=== PATIENT | male | born 1950 | race Caucasian/White ===

== ENCOUNTER 2024-01-15 11:18 | Emergency (ER) | payer OTHER, SELFPAY ==
[2024-01-15] VITALS (9 sets, daily range): BP systolic 120–144; BP diastolic 71–101; PULSE 76–87; O2SAT 96; BMI 24.0
[2024-01-15 12:29] LABS: % Basophils 0.9 % (0-2); % Eosinophils 5.2 % (0-6); % Immature Granulocytes 0.2 % (0-0.5); % Lymphocytes 26.5 % (20.5-51.1); % Monocytes 9.3 % (1.7-9.3); % Neutrophils 57.9 % (42.2-75.2); Absolute Basophils 0.1 10^3/uL (0-0.2); Absolute Eosinophils 0.3 10^3/uL (0-0.7); Absolute Lymphocytes 1.5 10^3/uL (1.2-3.4); Absolute Monocytes 0.5 10^3/uL (0.1-0.6); Absolute Neutrophils 3.2 10^3/uL (1.4-6.5); Hematocrit 45.9 % (39.0-52.0); Hemoglobin 15.7 g/dL (13.0-18.0); Mean Corp Hgb Conc. 34.2 g/dL (33.0-37.0); Mean Corpuscular Volume 93.5 fL (80.0-94.0); Nucleated Red Blood Cells % 0 % (-); Platelet Count 148 10^3/uL (130-400); Red Blood Cell Count 4.91 10^6/uL (4.70-6.10); Red Cell Dist. Width 12.2 % (11.5-14.5); White Blood Cell Count 5.6 10^3/uL (4.8-10.8)
[2024-01-15 12:38] LABS: ALT (SGPT) 42 U/L (0-50); AST (SGOT) 33 U/L (17-59); Albumin 4.2 g/dl (3.5-5.0); Alkaline Phosphatase 54 U/L (38-126); Blood Urea Nitrogen 15 mg/dl (9-20); Calcium 9.7 mg/dl (8.4-10.2); Carbon Dioxide 29 mmol/L (22-30); Chloride 106 mmol/L (98-107); Glucose 104 mg/dl (70-99); Potassium 4.2 mmol/L (3.5-5.1); Sodium 140 mmol/L (135-145); Total Bilirubin 0.7 mg/dl (0.2-1.3); Total Protein 6.9 g/dl (6.3-8.2); eGFR > 60.00
--- NOTE | 2024-01-15 13:12 | ED.GENMED ---
History of Present Illness
General
Chief Complaint: Dizziness
Source: patient
Exam Limitations: none
Time Seen by Provider: 01/15/24 12:45
Travel History
Have you had any contact with someone who has COVID-19?: No
Do you have any symptoms of coronavirus? Fever > 100 degrees, chills, cough, shortness of breath, sore throat, loss of taste or smell, muscle aches, or headache?: No
History of Present Illness
History of Present Illness:
73-year-old male with history of Lewy body dementia, Parkinson presents with increased dizziness today and new onset numbness to the left side of the face and left arm and leg. Symptoms started at 9 AM this morning. He is on a baby aspirin. He
denies headache. He has a history of vertigo and is followed by neurology. He is prescribed meclizine and Valium. He took 2 mg of Valium this morning which did not seem to help. He describes that the floor looks like a pattern of waves. He
denies double vision. No chest pain or shortness of breath. No fever. He has a bladder pacemaker. No change in urinary habits otherwise.
Past History
Past History
ED Past Medical History: CAD, HTN, Hypercholesterolemia and Other (Parkinson's, migraines, Lewy body dementia, Frequent urinary tract infections, has a bladder stimulator implant, sleep apnea)
ED Past Surgical History: Cardiac (Cardiac cath 2007), Orthopedic and Urological (TURP)
Social History
Tobacco: Former smoker
Alcohol: None
Drug: None
Personal:
Living: with family
Phy Exam
Physical Exam
Physical Exam:
General: Well-appearing male no acute respiratory distress
HEENT: Normocephalic atraumatic
Heart: Regular rate and rhythm
Lungs: Clear no wheeze or rales
Neurologic: Alert and oriented. No facial asymmetry or slurred speech. No evidence of aphasia. No obvious drift on exam. No nystagmus noted
Extremities: No cyanosis or edema
Skin: Warm without rash
Course
Orders/Labs/Results
Orders:
Orders
01/15/24 11:[address] [CT Head W/o Iv Contrast] Urgent
Comment:
Reason For Exam: numbness of face and dizziness
01/15/24 12:13
Complete Blood Count/With Diff Urgent
Comprehensive Metabolic Panel Urgent
01/15/24 13:37
Urinalysis Reflex To Culture Urgent
Date Specimen was Collected: 01/15/24
Time Specimen was Collected: 13:35
01/15/24 13:59
PT Consult [Pt Eval And Treat] Urgent
Treatment: vestibular eval and ambulate
Activity Level: Ambulate
Abnormal Lab Results
01/15/24
12:13
MCH 32.0 H pg
(27.0-31.0)
Glucose 104 H mg/dl
(70-99)
01/15/24 12:13
01/15/24 12:13
Vital Signs
Initial and Last Documented VS:
Initial Vital Signs
Temp Pulse Resp BP Pulse Ox
98.4 F 70 18 128/71 99
01/15/24 11:30 01/15/24 11:30 01/15/24 11:30 01/15/24 11:30 01/15/24 11:30
Last Documented Vital Signs
Temp Pulse Resp BP Pulse Ox
98.4 F 73 15 144/85 95
01/15/24 11:30 01/15/24 13:45 01/15/24 13:45 01/15/24 13:00 01/15/24 13:45
MDM/Problems Addressed
Differential Diagnosis Includes:
Patient with ongoing dizziness presents with worsening symptoms and usual as well as new onset numbness to the left side of the face left arm and leg. On exam objectively there is no unilateral deficits of strength or sensation. CT of the head was
performed through triage which is negative. Labs reviewed without significant finding.
Reached out to neurology for further recommendations on workup here. I was just told by the nurse that the patient now has numbness to the right side of the face which makes my suspicion of CVA less likely.
*Critical Care Note
Total Time (30-74mins, 75-104mins- exclusive of procedures): Not Applicable
Update Note
Update Note:
Workup here unremarkable with normal CT scan urinalysis negative. Patient was evaluated by physical therapy. He was somewhat unsteady. He has been unsteady in the past as well. Discussed with neurology. No indication for further workup or
imaging. He now complains of occasional paresthesias to bilateral sides. Do not suspect CVA. Recommendation from neurology will be to start prednisone for his dizziness. Suspect potential underlying worsening of underlying issue such as
Parkinson's or Lewy body. Shared decision making occurred between patient and family and his provider regarding staying in the hospital or going home. Patient expresses strong desire to be able to go home. was concerned about him going up
the steps but they have not noted to have him sleep downstairs. Will advise follow-up with urology. Prednisone was prescribed
ED Attending Note
-
Portions of this chart may have been created with voice recognition software.� Occasional wrong word or��sound alike� substitutions may have occurred due to the inherent limitations of voice recognition software.
Discharge Plan
Departure
Patient Disposition: Home (Routine Discharge)
Date of Disposition: 01/15/24
Time of Disposition: 16:10
Patient with high blood pressure during this ER visit?: No
Discharge Problem:
Dizziness
Instructions: Vertigo (a type of dizziness)
Prescriptions:
New
prednisone 20 mg tablet
40 mg PO DAILY 5 Days Qty: 10 0RF
No Action
loratadine 10 MG tablet
10 mg PO DAILY
multivitamin with folic acid [Tab-A-Rustam] 1 TABLET tablet
1 tab PO DAILY
Medical Marijuana
0.25 - 0.5 ml sublingual BID
Patient Comments:
03/18/2023: Pt uses a Daytime and Nighttime tincture. Pt goes to [facility] [phone] Hours: [place] [phone]
Myrbetriq 50 mg Tablet Extended Release 24 Hr
50 mg PO DAILY
quetiapine 25 mg tablet
25 mg PO HS
gabapentin 100 mg capsule
100 mg PO HS
rosuvastatin 20 mg tablet
20 mg PO DAILY
solifenacin 10 mg tablet
10 mg PO HS
clopidogrel 75 mg Tablet
75 mg PO DAILY Qty: 30 3RF
meclizine 12.5 mg Tablet
25 mg PO TID PRN (Reason: vertigo)
sertraline [Zoloft] 25 mg Tablet
25 mg PO HS
Referrals:
Ajay Pearson DO [Family Provider] -
Activity Restrictions/Additional Instructions:
Use prednisone as directed. Continue with Valium if needed for dizziness. Please return here for worsening symptoms otherwise follow-up with your neurology team
Interventions
Interventions:
*Risk Screen - Suicide Last Done: 01/15/24 11:30
*General Assessment Last Done: 01/15/24 11:30
*Neglect/Abuse Screening Last Done: 01/15/24 11:30
ED- Neurological Assessment Last Done: 01/15/24 12:35
ED Swallowing Screen Last Done: 01/15/24 16:07
Discharge Date and Time
Print Language: ROMANIAN
[2024-01-15 14:03] LABS: Urine Albumin Negative (Neg - Trace); Urine Bilirubin Negative (Negative); Urine Character Clear (Clear); Urine Color Yellow; Urine Glucose Negative (Negative); Urine Ketone Negative (Negative); Urine Leukocyte Negative (Negative); Urine Nitrite Negative (Negative); Urine Occult Blood Negative (Negative); Urine Specific Gravity 1.015 (<1.030); Urine Urobilinogen Negative (Neg - 1+); Urine pH 6.5 (5.0-9.0)
== END 2024-01-15 16:55 | disposition home or self-care (01) ==
LOC: EMR 11:18
PROVIDERS: Physician Assistant; EMERGENCY PHYSICIAN Emergency Medicine; FAMILY PHYSICIAN Family Medicine
DX: R42 Dizziness and giddiness (principal); R20.0 Anesthesia of skin; Z87.891 Personal history of nicotine dependence; I10 Essential (primary) hypertension; G20.A1 Parkinson's disease without dyskinesia, without mention of fluctuations; F02.80 Dementia in other diseases classified elsewhere, unspecified severity, without behavioral disturbance, psychotic disturbance, mood disturbance, and anxiety
CPT/HCPCS: 99285; 70450; 80053; 81003; 85025

== ENCOUNTER → 2024-02-04 09:21 | Outpatient (REF) | payer OTHER, SELFPAY | LOC: MRI 09:21 | PROVIDERS: ATTENDING PHYSICIAN Psychiatry & Neurology Neurology; FAMILY PHYSICIAN Family Medicine | DX: I63.9 Cerebral infarction, unspecified (principal) | CPT/HCPCS: 70544; 70547; 70551 ==

== ENCOUNTER 2024-03-25 11:28 | Emergency (ER) | payer OTHER, SELFPAY ==
[2024-03-25] VITALS (7 sets, daily range): BP systolic 113–158; BP diastolic 67–91
--- NOTE | 2024-03-25 11:43 | CON.NEURO ---
Neuro Assessment/Plan
Assessment
IMPRESSIONS/RECOMMENDATIONS:
Abrupt change in right eye visual change and right arm weakness. Both are subjective, not objective currently. Patient has a prior history of dementia with Lewy bodies.
Differential diagnosis for the patient's symptomatology includes migraine with aura based on the patient's headache which began shortly after the patient's symptomatic onset of right eye visual change and subjective right arm dysfunction.
Plan
Prochlorperazine for headache which may be producing other symptoms
Increase Melatonin to 15 mg for REM sleep behavior disorder
Would add again clopidogrel to the patient's usual aspirin use due to potential TIA, less likely
Patient is not currently utilizing medication in an attempt to remediate symptoms of dementia with Lewy bodies.
Will continue to follow as needed. Patient should follow with usual outpatient neurologist
Consultation
Order
Date of Consultation: 03/25/24
Requesting Provider: Emergency department physician
Reason for Consult: Stroke alert
Subjective/Objective
Subjective Data
Date of Service: March 25, 2024
Adapted from my esteemed colleagues prior consultation:
'72-year-old man with past medical history of Parkinson's disease presenting the hospital because of left-sided weakness, tilting to the left, new gait difficulties starting around yesterday in the late morning. Patient described as having a couple
of episodes which were thought to possibly be TIA characterized by visual hallucinations or occasional confused speech or aphasia, take aspirin 81 mg daily regularly. He denies any speech change or dysphagia or facial asymmetry but does note left
leg and left arm seem weak and having more difficulty walking than normal.
Was diagnosed with Parkinson's disease around 2019.
For some slow speech but no aphasia, cranial nerves, has minor left arm and left leg downward drift and some weakness 4/5 left shoulder abduction and left hip flexion. There is moderate parkinsonism with mild cogwheel rigidity bilaterally and an
obvious resting tremor more on the left than the right.
CT head non contrast with no obvious infarct, no hemorrhage or mass effect.
Unable to get MRI due to incompatibility
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 May be in white matter near cortex, basal ganglia, thalamus, or rom. Most likely small vessel disease as etiology.
Recommendations
-Repeat CT head non contrast to assess if any infarct can be visualized
-Check carotid ultrasound
-Switch to Clopidogrel therapy and stop aspirin. Will avoid DAPT due to bleeding risks as well as history of peptic ulcer.
-Keep Rosuvastatin to 20 mg daily LDL is at goal of 70
-Neurologic checks and NIH scales
-Continue existing Sinemet regimen
-Outpatient MRI'
Subsequent MRI of brain and MRA head and neck performed in January 2024 failed to demonstrate acute abnormalities producing symptomatology.
Patient returned to this hospital's emergency department today due to new sudden onset of subjective sense of visual change involving the right eye and right arm weakness. The patient has not had prior episodes which were similar. The patient
reports that approximately within 1 hour of symptom onset, he began having bilateral headache. The patient had onset of symptoms approximately 30 minutes prior to presentation to this hospital's emergency department.
Objective Data
Vital Signs
Temp Pulse Resp BP Pulse Ox
36.7 C 91 20 138/79 94
03/25/24 11:30 03/25/24 11:30 03/25/24 11:30 03/25/24 11:30 03/25/24 11:30
Patient Allergies
hyoscyamine [From Uribel] Allergy (Verified 03/25/24 11:33)
Hives
Iodinated Contrast Media [Iodinated Contrast Media - IV Dye] Allergy (Verified 03/25/24 11:33)
Hives
methenamine [From Uribel] Allergy (Verified 03/25/24 11:33)
Hives
methylene blue [From Uribel] Allergy (Verified 03/25/24 11:33)
Hives
salicylates [From Uribel] Allergy (Verified 03/25/24 11:33)
Hives
sodium phosphate [From Uribel] Allergy (Verified 03/25/24 11:33)
Hives
Sulfa (Sulfonamide Antibiotics) Allergy (Verified 03/25/24 11:33)
Unknown
Review of Systems
-
Unable to obtain full review of systems at this time due to: Dementia
History Source: Patient
All other systems: Reviewed and negative
Neuro: Headache; Negative Dizzy
Physical Exam
-
General: No Apparent Distress and Appears Stated Age
Eyes: OU Absent Papilledema, Round OU, [place] Conjunctivae and No Ptosis
HEENT: Anicteric and Moist Mucous Membranes
Neck: Full Range of Motion
Respiratory: No Dyspnea
Cardiac: No JVD
GI: Non-distended
Skin: Unremarkable
Extremities: No Clubbing, No Cyanosis and No Edema
Psych: Intact Judgement/Insight
Extended Neurological Exam
Mood & Affect: Mood Unremarkable and Affect Unremarkable
Attention Span & Concentration: Awake, Alert, Interactive and No Difficulty with 2 Step Request
Memory: Able to Recall (Current location, month, year)
Tremor: Hand Tremor Absent and Head Tremor Absent
Involuntary Movement: Negative None (Distal greater than proximal semirhythmic tremor at rest greater than with action in bilateral upper extremities)
Speech: Quality Unremarkable and Moderately Reduced Output
Cranial Nerve II: Left Eye: Pupillary Reactivity Unremarkable, Pupillary Size Unremarkable and Visual Flynn Intact
Cranial Nerve II: Right Eye: Pupillary Reactivity Unremarkable, Pupillary Size Unremarkable and Visual Flynn Intact
Cranial Nerves III, IV, : Extraocular Movement: Extraocular Movement Full in all Directions
Cranial Nerve VII: Facial Symmetry: Normal Facial Symmetry
Cranial Nerve VIII: Hearing: Unremarkable Hearing to Normal Conversational Volume
Cranial Nerves IX, X: Palate Movement: Palate Elevation Symmetric
Cranial Nerve XI: Shoulder Shrug: Unremarkable
Cranial Nerve XII: Tongue Protusion: Midline
Muscle Strength, Overall: Full Throughout
Muscle Bulk & Tone: Bulk Unremarkable and Tone Unremarkable
Pronator Drift: No Drift in Upper Extremities
Deep Tendon Reflexes: Trace Throughout
Touch Sensation: Unremarkable
Coordination: [id number] Testing Unremarkable
Data Reviewed
-
CT Head: Report Reviewed
Labs: Report Reviewed
Reviewed with: Physician, Nurse, Patient and Family
Old Records: Summarized
Medications
-
Home Medications
�Medication �Instructions �Recorded
loratadine 10 mg tablet 10 mg PO DAILY Allergies 07/24/21
multivitamin with folic acid 400 1 tab PO DAILY Supplement 07/24/21
mcg tablet (Tab-A-Rustam)
Medical Marijuana 0.25 - 0.5 ml sublingual BID 06/15/22
Mental Health/Anxiety
mirabegron 50 mg tablet,extended 50 mg PO DAILY Urinary Issue 06/15/22
release 24 hr (Myrbetriq)
gabapentin 100 mg capsule 100 mg PO HS Neurological Condition 03/18/23
quetiapine 25 mg tablet 25 mg PO HS Depression 03/18/23
rosuvastatin 20 mg tablet 20 mg PO DAILY High Cholesterol 03/18/23
solifenacin 10 mg tablet 10 mg PO HS Urinary Issue 03/18/23
clopidogrel 75 mg tablet 75 mg PO DAILY #30 tabs 03/20/23
meclizine 12.5 mg tablet 25 mg PO TID PRN vertigo 07/09/23
sertraline 25 mg tablet (Zoloft) 25 mg PO HS 07/09/23
prednisone 20 mg tablet 40 mg (2 x 20 mg) PO DAILY 5 days 01/15/24
#10 tabs
Past History
Past History
ED Past Medical History: CAD, Cancer (prostate ), HTN, Hypercholesterolemia and Other (migraines, Lewy body dementia, Frequent urinary tract infections, sleep apnea, sepsis)
ED Past Surgical History: Cardiac (Cardiac cath 2006), Orthopedic and Urological (TURP, has a bladder stimulator implant)
Social History
Tobacco: Former smoker
Alcohol: None
Drug: None
Personal:
Living: with family
Family History
Family History: Other (reviewed and non-contributory)
[2024-03-25 12:16] LABS: ALT (SGPT) 26 U/L (0-50); AST (SGOT) 24 U/L (17-59); Albumin 4.4 g/dl (3.5-5.0); Alkaline Phosphatase 66 U/L (38-126); Blood Urea Nitrogen 13 mg/dl (9-20); Calcium 9.7 mg/dl (8.4-10.2); Carbon Dioxide 29 mmol/L (22-30); Chloride 107 mmol/L (98-107); Glucose 100 mg/dl (70-99); Potassium 4.1 mmol/L (3.5-5.1); Sodium 142 mmol/L (135-145); Total Protein 6.8 g/dl (6.3-8.2); eGFR > 60.00
[2024-03-25 12:22] LABS: % Basophils 0.5 % (0-2); % Eosinophils 2.4 % (0-6); % Immature Granulocytes 0.3 % (0-0.5); % Lymphocytes 14.2 % (20.5-51.1); % Monocytes 7.5 % (1.7-9.3); % Neutrophils 75.1 % (42.2-75.2); Absolute Basophils 0.1 10^3/uL (0-0.2); Absolute Eosinophils 0.2 10^3/uL (0-0.7); Absolute Lymphocytes 1.3 10^3/uL (1.2-3.4); Absolute Monocytes 0.7 10^3/uL (0.1-0.6); Absolute Neutrophils 6.9 10^3/uL (1.4-6.5); Hematocrit 44.4 % (39.0-52.0); Hemoglobin 15.3 g/dL (13.0-18.0); Mean Corp Hgb Conc. 34.5 g/dL (33.0-37.0); Mean Corpuscular Hgb 32.2 pg (27.0-31.0); Mean Corpuscular Volume 93.5 fL (80.0-94.0); Mean Platelet Volume 10.4 fL (7.4-10.4); Nucleated Red Blood Cells % 0 % (-); Platelet Count 154 10^3/uL (130-400); Red Blood Cell Count 4.75 10^6/uL (4.70-6.10); Red Cell Dist. Width 12.4 % (11.5-14.5); White Blood Cell Count 9.2 10^3/uL (4.8-10.8)
[2024-03-25 12:23] LABS: INR 1.12; PT 14.2 Sec (11.4-14.6)
[2024-03-25 12:24] LABS: APTT 29.9 Sec (23.4-35.0)
[2024-03-25 12:25] LABS: Troponin I < 0.012 ng/ml
[2024-03-25] MEDS: PLAVIX 75 MG PO (12:26)
[2024-03-25] MEDS: COMPAZINE 10 MG PO (12:26)
[2024-03-25 12:44] LABS: Erythrocyte Sed Rate 10 mm/hour (0-20)
[2024-03-25 13:21] LABS: TSH Reflex To Free T4 0.63 uIU/ml (0.47-4.68)
[2024-03-25 13:25] LABS: Ferritin 90.5 ng/ml (17.9-464.0)
[2024-03-25 13:40] LABS: Vitamin B12 748 pg/ml (239-931)
--- NOTE | 2024-03-25 14:44 | ED.CVA ---
History of Present Illness
General
Chief Complaint: CVA/TIA Symptoms
Source: patient and spouse
Time Seen by Provider: 03/25/24 12:03
Onset of Stroke Symptoms
Onset of symptoms known: Yes
Date of onset of symptoms: 03/25/24
Time of onset of symptoms: 10:00
History of Present Illness
History of Present Illness:
73-year-old male started with some blurry vision and some questionable right arm weakness at 10 AM. No other complaints. No severe headache no other neurologic symptoms.
Past History
Past History
ED Past Medical History: CAD, Cancer (prostate ), HTN, Hypercholesterolemia and Other (migraines, Lewy body dementia, Frequent urinary tract infections, sleep apnea, sepsis)
ED Past Surgical History: Cardiac (Cardiac cath 2006), Orthopedic and Urological (TURP, has a bladder stimulator implant)
Social History
Tobacco: Former smoker
Alcohol: None
Drug: None
Personal:
Living: with family
Family History
Family History: Other (reviewed and non-contributory)
Phy Exam
Physical Exam
Physical Exam:
GENERAL: Alert and oriented. Mild tremor. Elderly and frail.
EYE: Orbits normal.
NECK: Supple, no carotid bruit
CARDIAC: Regular rate and rhythm without any obvious murmurs.
LUNGS: Clear breath sounds,normal
ABDOMEN: Soft, without focal tenderness or distention
NEUROLOGICAL: Alert and oriented , bolt man normal. Initially had a questionable slight right arm drift although on repeat exam this was normal. Lower extremity strength stable. Cranial nerves II through XII intact. Confrontation normal. Light
touch intact.
SKIN: Warm and dry, no rash or lesion, no discoloration, skin intact.
MUSCULOSKELETAL: No edema,no deformity.Good color
PSYCH: Normal and appropriate interaction.
Course
Orders/Labs/Results
Orders:
Orders
03/25/24 11:41
CT Head W/o Cont STROKE ALERT Urgent
Reason For Exam: stroke symptoms
03/25/24 11:56
Electrocardiogram (*1) Urgent
Reason for Study: Other
Other Reason for Exam: Possible Stroke
Cardiac Monitoring- Treatment ONCE
EKG- Treatment ONCE
IV Insert/Care/Rem.- Treatment PRN
Vital Signs As Directed
Frequency: Other
O2 Therapy [RESP] Urgent
Titrate/Wean O2 to maintain O2 sat greater than (%): 93
Special Instructions: MAINTAIN CONTINUOUS O2 SATS > OR = 93%
03/25/24 11:57
Complete Blood Count/With Diff Urgent
Comprehensive Metabolic Panel Urgent
Erythrocyte Sed Rate Urgent
Ferritin Urgent
Folate Urgent
PTT Urgent
Prothrombin Time Urgent
TSH Reflex To Free T4 Urgent
Troponin I Urgent
Vitamin B12 Urgent
Comment: \\
03/25/24 12:03
Add On- LAB Routine
Comments:: Please add to today's labs or draw as routine
Tests Added?: TSH reflex, Ferritin, Folate, Vit. B12, ESR
Add On- LAB Urgent
Tests Added?: esr
Prochlorperazine [Compazine] 10 mg PO NOW STA
03/25/24 12:11
Clopidogrel Bisulfate [Plavix] 75 mg PO NOW STA
03/25/24 18:00
Prochlorperazine [Compazine] 10 mg PO Q8HPRN PRN
Abnormal Lab Results
03/25/24
11:57
MCH 32.2 H pg
(27.0-31.0)
Absolute Neuts (auto) 6.9 H 10^3/uL
(1.4-6.5)
Absolute Monos (auto) 0.7 H 10^3/uL
(0.1-0.6)
Lymphocytes % 14.2 L %
(20.5-51.1)
Glucose 100 H mg/dl
(70-99)
Folate > 20.0 H ng/ml
(2.76-20)
03/25/24 11:57
03/25/24 11:57
Vital Signs
Initial and Last Documented VS:
Initial Vital Signs
Temp Pulse Resp BP Pulse Ox
98.1 F 91 20 138/79 94
03/25/24 11:30 03/25/24 11:30 03/25/24 11:30 03/25/24 11:30 03/25/24 11:30
Last Documented Vital Signs
Temp Pulse Resp BP Pulse Ox
98.1 F 82 18 132/78 94
03/25/24 11:30 03/25/24 15:00 03/25/24 15:00 03/25/24 15:00 03/25/24 15:00
*Radiology
Radiology exam reviewed: radiology read reviewed (No acute abnormalities)
*Pulse Oximetry
Patient hypoxic: no
*EKG
Interpreted by ED Provider?: Yes
Interpretation: normal
Heart Rate: 87
Rate: normal
Rhythm: sinus
Cammal: normal axis
Interval: normal interval
QRS Pattern: normal QRS
Ischemia: no ischemia
*Cosmetics Counter Manager Interpretation
Rate: normal
Interpretation: normal
Heart Rate: 84
Rhythm: sinus
*Critical Care Note
Total Time (30-74mins, 75-104mins- exclusive of procedures): Not Applicable
Update Note
Update Note:
Medically stable with resolution of symptoms. Seen by neuro neurology. They felt stable for outpatient management. Symptoms have resolved prior to discharge. Neurology recommends Plavix added.
ED Attending Note
-
Portions of this chart may have been created with voice recognition software.� Occasional wrong word or��sound alike� substitutions may have occurred due to the inherent limitations of voice recognition software.
Discharge Plan
Departure
Patient Disposition: Home (Routine Discharge)
Date of Disposition: 03/25/24
Time of Disposition: 15:24
Patient with high blood pressure during this ER visit?: Yes
Discharge Problem:
Transient visual loss
Instructions: Transient Ischemic Attack (DC), BLOOD PRESSURE
Prescriptions:
New
clopidogrel [Plavix] 75 mg tablet
75 mg PO DAILY Qty: 30 0RF
No Action
loratadine 10 MG tablet
10 mg PO DAILY
multivitamin with folic acid [Tab-A-Rustam] 1 TABLET tablet
1 tab PO DAILY
mirabegron [Myrbetriq] 50 mg Tablet Extended Release 24 Hr
50 mg PO DAILY
quetiapine 25 mg tablet
50 mg PO HS
gabapentin 100 mg capsule
100 mg PO HS
rosuvastatin 20 mg tablet
20 mg PO DAILY
solifenacin 10 mg tablet
10 mg PO HS
meclizine 12.5 mg Tablet
12.5 - 25 mg PO TIDPRN PRN (Reason: vertigo)
sertraline [Zoloft] 25 mg Tablet
25 mg PO HS
aspirin [Aspir-81] 81 mg Tablet,Delayed Release (Dr/Ec)
81 mg PO DAILY
amitriptyline 10 mg Tablet
10 mg PO DAILY
diazepam 2 mg Tablet
2 mg PO BIDPRN PRN (Reason: severe vertigo)
Patient Comments:
03/25/2024: last filled 02/21/24, 30 tabs for 15 days from [id number]
docusate sodium [Colace] 100 mg Capsule
100 mg PO DAILY
melatonin 5 mg Tablet
10 mg PO HS
Referrals:
Ramón Crump MD [Active] - Next open appointment
Ajay Pearson DO [Family Provider] - Follow up in 2-3 days
Activity Restrictions/Additional Instructions:
Add the Plavix per day
Follow-up with your primary physician and neurologist
Call your health assistant Wednesday morning for eye reevaluation
Return with any recurring episodes or other neurologic symptoms
Interventions
Interventions:
*Risk Screen - Suicide Last Done: 03/25/24 11:58
*General Assessment Last Done: 03/25/24 12:50
*Neglect/Abuse Screening Last Done: 03/25/24 11:58
ED- Fall Risk Assessment Last Done: 03/25/24 15:40
*ED COVID-19 Vaccine History Last Done: 03/25/24 11:51
*Nursing Disposition Last Done: 03/25/24 15:40
ED- Pulmonary Assessment Last Done: 03/25/24 11:53
ED- Neurological Assessment Last Done: 03/25/24 11:52
ED- Cardiac Assessment Last Done: 03/25/24 11:52
ED Swallowing Screen Last Done: 03/25/24 12:22
Discharge Date and Time
Discharge Date/Time: 03/25/24 15:41
Print Language: ARABIC
[2024-03-25 14:55] LABS: Folate > 20.0 ng/ml (2.76-20)
== END 2024-03-25 15:41 | disposition home or self-care (01) ==
LOC: EMR 11:28
PROVIDERS: EMERGENCY PHYSICIAN Emergency Medicine; FAMILY PHYSICIAN Family Medicine; OTHER PHYSICIAN Psychiatry & Neurology Neurology
DX: H53.121 Transient visual loss, right eye (principal); I10 Essential (primary) hypertension
CPT/HCPCS: 99285; 70450; 80053; 82607; 82728; 82746; 84443; 84484; 85025; 85610; 85652; 85730; 93005

== ENCOUNTER → 2024-04-24 14:37 | Outpatient (REF) | payer OTHER, SELFPAY | LOC: HWRCS 14:37 | PROVIDERS: ATTENDING PHYSICIAN Psychiatry & Neurology Neurology; FAMILY PHYSICIAN Family Medicine | DX: G45.9 Transient cerebral ischemic attack, unspecified (principal) | CPT/HCPCS: 93306 ==

== ENCOUNTER → 2024-06-01 15:03 | Outpatient (REF) | payer OTHER, SELFPAY | LOC: RAD 15:03 | PROVIDERS: ATTENDING PHYSICIAN Psychiatry & Neurology Neurology; FAMILY PHYSICIAN Family Medicine | DX: G45.9 Transient cerebral ischemic attack, unspecified (principal) | CPT/HCPCS: 93880 ==

== ENCOUNTER 2024-10-20 12:41 | Emergency (ER) | payer OTHER, SELFPAY ==
[2024-10-20 12:52] VITALS: BP 129/75
--- NOTE | 2024-10-20 12:52 | ED.GENMED ---
ED Provider Triage
<Dmitriy Marina PA-C - Last Filed: 10/20/24 12:57>
-
Patient seen by provider in Triage?: Seen in Triage
Attestation: A medical screening examination has been initiated by a qualified medical provider. Based on the assessment performed at this time, it has been determined that an emergent medical condition may exist and the patient has been informed
that further medical evaluation and possible additional diagnostic testing may be needed.
HPI: 74-year-old male presents to the emergency department for evaluation of chest pain. Arrives with his . Has a history of dementia. Described as a band around his chest. No fevers or chills. Does have increased GERD symptoms as well as
nausea.
GENERAL: Alert , in no apparent distress
EYE: No visual abnormalities.
NECK: Trachea midline
ENT: No visible abnormalities.
LUNGS: No acute respiratory distress
NEUROLOGICAL: Alert and oriented
SKIN: Skin intact. No visible changes.
MUSCULOSKELETAL: Moving extremities normally
PSYCH: Normal and appropriate interaction.
This is a medical evaluation conducted in person to initiate diagnostic evaluation and provide initial therapeutics. Please see further documentation by the treating clinician.
History of Present Illness
<Dmitriy Marina PA-C - Last Filed: 10/20/24 12:57>
General
Chief Complaint: Chest Pain
Time Seen by Provider: 10/20/24 19:06
<Kwan Whitehead DO - Last Filed: 10/20/24 20:02>
General
Source: patient and spouse
Exam Limitations: none
History of Present Illness
History of Present Illness:
See MDM
Past History
<Dmitriy Marina PA-C - Last Filed: 10/20/24 12:57>
Past History
ED Past Medical History: CAD, Cancer (prostate ), HTN, Hypercholesterolemia and Other (migraines, Lewy body dementia, Frequent urinary tract infections, sleep apnea, sepsis)
ED Past Surgical History: Cardiac (Cardiac cath 2006), Orthopedic and Urological (TURP, has a bladder stimulator implant)
Social History
Tobacco: Former smoker
Alcohol: None
Drug: None
Personal:
Living: with family
Family History
Family History: Other (reviewed and non-contributory)
Phy Exam
<Kwan Whitehead, DO - Last Filed: 10/20/24 20:02>
Physical Exam
Physical Exam:
See MDM
Scores
<Kwan Whitehead, DO - Last Filed: 10/20/24 20:02>
Heart Score for Chest Pain Patients
STEMI patient?: No
History: Slightly or Non-Suspicious
ECG: Normal
Age: >/= 65 years
Risk Factors: 1 or 2 Risk Factors
Troponin: </= Normal Limit
Heart Score for Chest Pain Patients: 3
Heart Score Risk: 2.5% MACE over next 6 weeks
Course
<Dmitriy Marina PA-C - Last Filed: 10/20/24 12:57>
Orders/Labs/Results
Orders:
Orders
10/20/24 12:42
Electrocardiogram (*1) Urgent
Reason for Study: Chest Pain
10/20/24 12:43
EKG- Treatment ONCE
10/20/24 12:56
CR Chest - 2 Views Urgent
Comment:
Reason For Exam: chest pain
10/20/24 13:14
Complete Blood Count/With Diff Urgent
Comprehensive Metabolic Panel Urgent
Troponin I Urgent
10/20/24 16:19
Electrocardiogram (*1) Urgent
Reason for Study: Chest Pain
10/20/24 16:20
EKG- Treatment ONCE
10/20/24 16:29
Troponin I Urgent
10/20/24 19:08
Urinalysis Reflex To Culture Urgent
Date Specimen was Collected: 10/20/24
Time Specimen was Collected: 19:07
Urine Microscopic Reflex Cult Urgent
Urine Culture Urgent
DAISY Source: U
Specimen Description:
Date Specimen was Collected: 10/20/24
Time Specimen was Collected: 19:07
10/20/24 20:00
Acetaminophen [Tylenol] 500 mg PO NOW STA
Abnormal Lab Results
10/20/24 10/20/24
13:14 19:08
WBC 4.5 L 10^3/uL
(4.8-10.8)
MCV 97.3 H fL
(80.0-94.0)
MCH 32.4 H pg
(27.0-31.0)
Monocytes % 9.6 H %
(1.7-9.3)
Carbon Dioxide 33 H mmol/L
(22-30)
Ur Occult Blood Reflex 1+ A
(Negative)
Urine Bacteria (Reflex) Moderate A
(Negative)
10/20/24 13:14
10/20/24 13:14
Vital Signs
Initial and Last Documented VS:
Initial Vital Signs
Temp Pulse Resp BP Pulse Ox
98.3 F 81 16 129/75 96
10/20/24 12:52 10/20/24 12:52 10/20/24 12:52 10/20/24 12:52 10/20/24 12:52
Last Documented Vital Signs
Temp Pulse Resp BP Pulse Ox
98.3 F 83 16 142/89 96
10/20/24 16:33 10/20/24 19:00 10/20/24 19:00 10/20/24 18:54 10/20/24 19:00
<Kwan Whitehead, DO - Last Filed: 10/20/24 20:02>
Orders/Labs/Results
Orders:
Orders
10/20/24 12:42
Electrocardiogram (*1) Urgent
Reason for Study: Chest Pain
10/20/24 12:43
EKG- Treatment ONCE
10/20/24 12:56
CR Chest - 2 Views Urgent
Comment:
Reason For Exam: chest pain
10/20/24 13:14
Complete Blood Count/With Diff Urgent
Comprehensive Metabolic Panel Urgent
Troponin I Urgent
10/20/24 16:19
Electrocardiogram (*1) Urgent
Reason for Study: Chest Pain
10/20/24 16:20
EKG- Treatment ONCE
10/20/24 16:29
Troponin I Urgent
10/20/24 19:08
Urinalysis Reflex To Culture Urgent
Date Specimen was Collected: 10/20/24
Time Specimen was Collected: 19:07
Urine Microscopic Reflex Cult Urgent
Urine Culture Urgent
DAISY Source: U
Specimen Description:
Date Specimen was Collected: 10/20/24
Time Specimen was Collected: 19:07
10/20/24 20:00
Acetaminophen [Tylenol] 500 mg PO NOW STA
Abnormal Lab Results
10/20/24 10/20/24
13:14 19:08
WBC 4.5 L 10^3/uL
(4.8-10.8)
MCV 97.3 H fL
(80.0-94.0)
MCH 32.4 H pg
(27.0-31.0)
Monocytes % 9.6 H %
(1.7-9.3)
Carbon Dioxide 33 H mmol/L
(22-30)
Ur Occult Blood Reflex 1+ A
(Negative)
Urine Bacteria (Reflex) Moderate A
(Negative)
10/20/24 13:14
10/20/24 13:14
Vital Signs
Initial and Last Documented VS:
Initial Vital Signs
Temp Pulse Resp BP Pulse Ox
98.3 F 81 16 129/75 96
10/20/24 12:52 10/20/24 12:52 10/20/24 12:52 10/20/24 12:52 10/20/24 12:52
Last Documented Vital Signs
Temp Pulse Resp BP Pulse Ox
98.3 F 83 16 142/89 96
10/20/24 16:33 10/20/24 19:00 10/20/24 19:00 10/20/24 18:54 10/20/24 19:00
<Kwan Whitehead, DO - Last Filed: 10/20/24 20:02>
MDM/Problems Addressed
Differential Diagnosis Includes:
HPI and MDM Narrative:
74-year-old male presenting with for evaluation of chest discomfort. Patient states he woke up with right-sided chest discomfort and described it as a bandlike pain around his chest. They called the PCP and were instructed go to the hospital
for evaluation. Prior to my evaluation, chest x-ray and blood work was performed. Due to the current wait in the waiting room, a 2 troponin rule out was already performed. When I entered the room, patient is sitting in bed comfortably. Chest
x-ray is clear. On exam, his abdomen is soft and nontender. Lungs are clear. He has no leg edema. He states he is already feeling better without intervention. He denies any new medications or food intake. Troponin was negative x 2. Both EKG
is not ischemic. Discussed low risk for ACS given improving symptoms with negative troponins. Will place on cardiac callback tracker
Physical exam
General: Well appearing and non-toxic. Sitting in bed comfortably
HEENT: protecting airway
Neck: appears supple
CV: No evidence of cyanosis. Regular rate and rhythm
Resp: No accessory muscle use. Lungs clear
Abd: Non-distended
Extremities: No deformities. No leg edema
Neuro: alert. Right sided tremor noted. Chronic per patient
Psych: Normal affect
Skin: Intact
Problems Addressed including Acute and Chronic Conditions affecting care:
1. Chest discomfort
Acuity: acute
Prognosis: stable
Details: Given troponin negative x 2, doubt ACS. Chest x-ray clear. Will place on cardiac callback tracker
Updates
Urinalysis does have bacteria but leuk esterase and nitrate negative. It was reflexed to culture. This was relayed to patient and and they agree to not start antibiotics until the culture comes back. Will give dose of Tylenol for chest
discomfort. Both patient and feel comfortable going home
Differential Diagnosis (but not limited to): Noncardiac chest pain, pneumothorax, symptomatic cholelithiasis
Testing considered: D-dimer but he is neither tachycardic nor hypoxic
Drug therapy (if applicable): OTC meds, please see d/c instruction regarding Rx drugs
Amount and/or Complexity of Data Reviewed
Clinical info obtained from: Patient. states PCP instructed them to come to the hospital
External data reviewed: N/A
Labs I independently reviewed (but not limited to): Troponin negative x 2
Radiology: X-ray independently reviewed: Chest x-ray clear
Pulse Ox: not hypoxic
EKG independently reviewed: Sinus rhythm, normal axis, no STEMI
Pump Tester: Sinus rhythm
Critical Care: N/A
Risk of Complication:
Social Determinants of health: Good social support
Discussed with other providers: N/A
Escalation of Care includes Admit/Obs: After being observed in the Emergency Department, pt stable for discharge.
Occasional wrong word or 'sound a like' substitutions may have occurred due to the inherent limitations of voice recognition software. Read the chart carefully and recognize, using context, where substitutions have occurred.
<Kwan Whitehead, DO - Last Filed: 10/20/24 20:02>
*Critical Care Note
Total Time (30-74mins, 75-104mins- exclusive of procedures): Not Applicable
ED Attending Note
<Dmitriy Marina PA-C - Last Filed: 10/20/24 12:57>
-
Portions of this chart may have been created with voice recognition software.� Occasional wrong word or��sound alike� substitutions may have occurred due to the inherent limitations of voice recognition software.
Discharge Plan
Departure
Patient Disposition: Home (Routine Discharge)
Date of Disposition: 10/20/24
Time of Disposition: 20:01
Patient with high blood pressure during this ER visit?: Yes
Discharge Problem:
Chest discomfort
Instructions: Chest Pain CBC Follow Up, BLOOD PRESSURE
Prescriptions:
No Action
loratadine 10 MG tablet
10 mg PO DAILY
multivitamin with folic acid [Tab-A-Rustam] 1 TABLET tablet
1 tab PO DAILY
mirabegron [Myrbetriq] 50 mg Tablet Extended Release 24 Hr
50 mg PO DAILY
quetiapine 25 mg tablet
50 mg PO HS
gabapentin 100 mg capsule
100 mg PO HS
rosuvastatin 20 mg tablet
20 mg PO DAILY
solifenacin 10 mg tablet
10 mg PO HS
meclizine 12.5 mg Tablet
12.5 - 25 mg PO TIDPRN PRN (Reason: vertigo)
sertraline [Zoloft] 25 mg Tablet
25 mg PO HS
aspirin [Aspir-81] 81 mg Tablet,Delayed Release (Dr/Ec)
81 mg PO DAILY
amitriptyline 10 mg Tablet
10 mg PO DAILY
diazepam 2 mg Tablet
2 mg PO BIDPRN PRN (Reason: severe vertigo)
Patient Comments:
03/25/2024: last filled 02/21/24, 30 tabs for 15 days from [facility]
docusate sodium [Colace] 100 mg Capsule
100 mg PO DAILY
melatonin 5 mg Tablet
10 mg PO HS
clopidogrel [Plavix] 75 mg tablet
75 mg PO DAILY Qty: 30 0RF
Referrals:
Ajay Pearson DO [Family Provider] -
Activity Restrictions/Additional Instructions:
Please return for any worsening symptoms.
You may return at any time if you have further concerns.
Please follow up with your doctor at the first available appointment, preferably this week.
You were placed on the cardiac callback tracker. Someone from their office should call you in the next few days. If you do not hear from them in the next few days, please give them a call.
Thank you for choosing [facility].
Interventions
Interventions:
*Risk Screen - Suicide Last Done: 10/20/24 12:52
*General Assessment Last Done: 10/20/24 18:56
*Neglect/Abuse Screening Last Done: 10/20/24 12:52
ED- Fall Risk Assessment Last Done: 10/20/24 18:56
*ED COVID-19 Vaccine History Last Done: 10/20/24 18:56
ED- Cardiac Assessment Last Done: 10/20/24 18:56
Discharge Date and Time
Print Language: LUXEMBOURGER
[2024-10-20 13:25] LABS: % Basophils 1.1 % (0-2); % Eosinophils 5.4 % (0-6); % Immature Granulocytes 0.2 % (0-0.5); % Lymphocytes 33.4 % (20.5-51.1); % Monocytes 9.6 % (1.7-9.3); % Neutrophils 50.3 % (42.2-75.2); Absolute Basophils 0.1 10^3/uL (0-0.2); Absolute Eosinophils 0.2 10^3/uL (0-0.7); Absolute Lymphocytes 1.5 10^3/uL (1.2-3.4); Absolute Monocytes 0.4 10^3/uL (0.1-0.6); Absolute Neutrophils 2.2 10^3/uL (1.4-6.5); Hematocrit 47.2 % (39.0-52.0); Hemoglobin 15.7 g/dL (13.0-18.0); Mean Corp Hgb Conc. 33.3 g/dL (33.0-37.0); Mean Corpuscular Hgb 32.4 pg (27.0-31.0); Mean Corpuscular Volume 97.3 fL (80.0-94.0); Mean Platelet Volume 10.1 fL (7.4-10.4); Nucleated Red Blood Cells % 0 % (-); Platelet Count 160 10^3/uL (130-400); Red Blood Cell Count 4.85 10^6/uL (4.70-6.10); Red Cell Dist. Width 12.3 % (11.5-14.5); White Blood Cell Count 4.5 10^3/uL (4.8-10.8)
[2024-10-20 13:37] LABS: ALT (SGPT) 48 U/L (0-50); AST (SGOT) 31 U/L (17-59); Albumin 4.7 g/dl (3.5-5.0); Alkaline Phosphatase 58 U/L (38-126); Blood Urea Nitrogen 15 mg/dl (9-20); Calcium 9.7 mg/dl (8.4-10.2); Carbon Dioxide 33 mmol/L (22-30); Chloride 102 mmol/L (98-107); Glucose 96 mg/dl (70-99); Potassium 3.9 mmol/L (3.5-5.1); Sodium 143 mmol/L (135-145); Total Bilirubin 0.8 mg/dl (0.2-1.3); Total Protein 7.2 g/dl (6.3-8.2); eGFR > 60.00
[2024-10-20 13:48] LABS: Troponin I < 0.012 ng/ml
[2024-10-20 16:33] VITALS: BP 142/77
[2024-10-20 17:12] LABS: Troponin I < 0.012 ng/ml
[2024-10-20 18:54] VITALS: BP 142/89
[2024-10-20 19:16] LABS: Urine Albumin Negative (Neg - Trace); Urine Bilirubin Negative (Negative); Urine Character Clear (Clear); Urine Color Yellow; Urine Glucose Negative (Negative); Urine Ketone Negative (Negative); Urine Leukocyte Negative (Negative); Urine Nitrite Negative (Negative); Urine Occult Blood 1+ (Negative); Urine Specific Gravity 1.015 (<1.030); Urine Urobilinogen Negative (Neg - 1+); Urine pH 6.5 (5.0-9.0)
[2024-10-20 19:39] LABS: Urine Amorphous Seen; Urine Bacteria Moderate (Negative); Urine Red Blood Cell 0-2 /HPF (0-2); Urine Squamous Cell 0-2 /LPF (Few)
[2024-10-20 19:49] VITALS: BMI 24.8
[2024-10-20 20:00] VITALS: BP 130/66
[2024-10-20] MEDS: TYLENOL 500 MG PO (20:38)
== END 2024-10-20 21:00 | disposition home or self-care (01) ==
LOC: EMR 12:41
PROVIDERS: Emergency Medicine; Physician Assistant; EMERGENCY PHYSICIAN Student in an Organized Health Care Education/Training Program; FAMILY PHYSICIAN Family Medicine
DX: R07.89 Other chest pain (principal); I10 Essential (primary) hypertension; F02.80 Dementia in other diseases classified elsewhere, unspecified severity, without behavioral disturbance, psychotic disturbance, mood disturbance, and anxiety; K21.9 Gastro-esophageal reflux disease without esophagitis; Z87.891 Personal history of nicotine dependence
CPT/HCPCS: 99285; 71046; 80053; 81003; 81015; 84484; 85025; 87086; 93005

== ENCOUNTER → 2024-12-11 10:31 | Outpatient (REF) | payer OTHER, SELFPAY ==
--- NOTE | 2024-12-11 18:52 | EEGC.RPT ---
Continuous EEG Report
Recording
Start Date of Data Reviewed: 12/11/24
Done with Video Recording: Yes
Report
TECHNICAL REMARKS:��This is a technically satisfactory eighteen channel record employing 21 disc electrodes applied according to a measured international 10-20 electrode placement system.��There were no significant technical difficulties.��The study
was done on a [employer] System.
STUDY DURATION: 51 min 38 sec
MEDICATIONS:�Gabapentin, Seroquel, Sertraline
CLINICAL HISTORY: This is a 74-year-old man with history of Lewy body dementia with recurrent spells. �this study was requested to look for epileptiform activity.
REPORT: �At the onset of the EEG, the patient is drowsy.� During brief time of wakefulness the background activity consists of 7-9 Hz, impersistent, posteriorly dominant, moderate amplitude, symmetric, and rhythmic activity.� Intermittent 2-3 Hz,
30-50 uV polymorphic delta slowing with shifting predominance is present.Stepwise intermittent photic stimulation (1-31 Hz) and hyperventilation was not performed. Infrequent left greater than right temporal sharps and transient theta range
rhythmic slowing lasting for 6 seconds with no correlating video monitoring was present. Drowsiness is characterized by low amplitude mixed frequency activity, decreased eye blinking, and muscle artifact.
IMPRESSION: �This is an abnormal awake and drowsy EEG due to infrequent bitemporal sharp waves indicative of propensity to develop seizure from the above area. In addition there was a moderate to severe generalized slowing suggestive of
encephalopathy nonspecific in terms of etiology.
== END ==
LOC: EEG 10:31
PROVIDERS: ATTENDING PHYSICIAN Psychiatry & Neurology Neurology; FAMILY PHYSICIAN Family Medicine
DX: R41.89 Other symptoms and signs involving cognitive functions and awareness (principal); R56.9 Unspecified convulsions
CPT/HCPCS: 95812

== ENCOUNTER 2025-04-01 19:50 | Inpatient (IN) | payer OTHER, SELFPAY ==
[2025-03-31] VITALS (8 sets, daily range): BP systolic 101–156; BP diastolic 60–94; PULSE 76; O2SAT 94; BMI 26.4
[2025-03-31 14:26] LABS: Hematocrit 45.6 % (39.0-52.0); Hemoglobin 15.5 g/dL (13.0-18.0); Mean Corp Hgb Conc. 34.0 g/dL (33.0-37.0); Mean Corpuscular Volume 95.0 fL (80.0-94.0); Nucleated Red Blood Cells % 0 % (-); Platelet Count 149 10^3/uL (130-400); Red Cell Dist. Width 12.5 % (11.5-14.5)
[2025-03-31 14:53] LABS: Blood Urea Nitrogen 12 mg/dl (9-20); Calcium 9.2 mg/dl (8.4-10.2); Carbon Dioxide 23 mmol/L (22-30); Chloride 112 mmol/L (98-107); Glucose 115 mg/dl (70-99); Sodium 141 mmol/L (135-145); eGFR > 60.00
--- NOTE | 2025-03-31 15:09 | ED.GENMED ---
History of Present Illness
General
Chief Complaint: Weakness
Source: patient
Exam Limitations: none
Time Seen by Provider: 03/31/25 14:59
History of Present Illness
History of Present Illness:
See MDM
Past History
Past History
ED Past Medical History: CAD, Cancer (prostate ), HTN, Hypercholesterolemia and Other (migraines, Lewy body dementia, Frequent urinary tract infections, sleep apnea, sepsis)
ED Past Surgical History: Cardiac (Cardiac cath 2006), Orthopedic and Urological (TURP, has a bladder stimulator implant)
Social History
Tobacco: Former smoker
Alcohol: None
Drug: None
Personal:
Living: with family
Family History
Family History: Other (reviewed and non-contributory)
Phy Exam
Physical Exam
Physical Exam:
See MDM
Course
Orders/Labs/Results
Orders:
Orders
03/31/25 14:01
Electrocardiogram (*1) Urgent
Reason for Study: Fatigue / Weakness
EKG- Treatment ONCE
03/31/25 14:10
Basic Metabolic Panel Urgent
Complete Blood Count/With Diff Urgent
03/31/25 15:08
Case Management Consult ONCE
Case Management Consult: VN/Home Care
Pt Eval And Treat Urgent
Activity Level: Ambulate
03/31/25 16:20
Urinalysis Reflex To Culture Urgent
Date Specimen was Collected: 03/31/25
Time Specimen was Collected: 15:12
Urine Microscopic Reflex Cult Urgent
Urine Culture Urgent
DAISY Source: U
Specimen Description:
Date Specimen was Collected: 03/31/25
Time Specimen was Collected: 15:12
Abnormal Lab Results
03/31/25 03/31/25
14:10 16:20
MCV 95.0 H fL
(80.0-94.0)
MCH 32.3 H pg
(27.0-31.0)
Chloride 112 H mmol/L
(98-107)
Glucose 115 H mg/dl
(70-99)
Ur Occult Blood Reflex 1+ A
(Negative)
Urine Bacteria (Reflex) Moderate A
(Negative)
03/31/25 14:10
03/31/25 14:10
Vital Signs
Initial and Last Documented VS:
Initial Vital Signs
Temp Pulse Resp BP Pulse Ox
98.0 F 88 16 129/77 98
03/31/25 13:59 03/31/25 13:59 03/31/25 13:59 03/31/25 13:59 03/31/25 13:59
Last Documented Vital Signs
Temp Pulse Resp BP Pulse Ox
98.0 F 81 18 156/84 94
03/31/25 13:59 03/31/25 16:00 03/31/25 16:00 03/31/25 15:21 03/31/25 15:45
MDM/Problems Addressed
Differential Diagnosis Includes:
HPI and MDM Narrative:
74-year-old male presenting with generalized weakness and fatigue. He does have a history of Parkinson's. He lives at home with his . His at bedside states that he has become increasingly difficult to care for him. He has become weaker
over the past few months. He is got to the point where he is now having trouble walking due to his weakness. states that she is going to need more help at home. Basic blood work was started. Will obtain urinalysis and discussed case with
case management and PT
Physical exam
General: Weak and frail
HEENT: protecting airway
Neck: appears supple
CV: No evidence of cyanosis
Resp: No accessory muscle use
Abd: Non-distended and nontender
Extremities: No deformities. No leg edema
Neuro: alert. Resting tremor
Psych: Normal affect
Skin: Intact
Problems Addressed including Acute and Chronic Conditions affecting care:
1. Generalized weakness and fatigue
Acuity: Acute on chronic
Prognosis: stable
Details: Likely in setting of progression of his Parkinson's. Will obtain basic blood work and urinalysis discuss case with case management
Updates
Case management and PT did evaluate. PT concerned that patient requires 24-hour care. having trouble caring for him at home due to his inability to walk. Will admit for PT and case management and disposition
Differential Diagnosis (but not limited to): Worsening Parkinson's, UTI, dehydration
Testing considered: Chest x-ray
Drug therapy (if applicable): OTC meds, please see d/c instruction regarding Rx drugs
Amount and/or Complexity of Data Reviewed
Clinical info obtained from: Patient
External data reviewed: N/A
Labs I independently reviewed (but not limited to): White blood cell count normal
Radiology: N/A
Pulse Ox: not hypoxic
EKG independently reviewed: Sinus rhythm, normal axis, no STEMI, significant artifact from his bladder stimulator
Music Therapist: Sinus rhythm
Critical Care: N/A
Risk of Complication:
Social Determinants of health: Good social support
Discussed with other providers: Hospitalist
Escalation of Care includes Admit/Obs: Given his inability to walk due to the worsening Parkinson's, will admit
Occasional wrong word or 'sound a like' substitutions may have occurred due to the inherent limitations of voice recognition software. Read the chart carefully and recognize, using context, where substitutions have occurred.
*Pulse Oximetry
SaO2: 98
Oxygen Mode of Delivery: Room air
Patient hypoxic: no
*Critical Care Note
Total Time (30-74mins, 75-104mins- exclusive of procedures): Not Applicable
ED Attending Note
-
Portions of this chart may have been created with voice recognition software.� Occasional wrong word or��sound alike� substitutions may have occurred due to the inherent limitations of voice recognition software.
Discharge Plan
Departure
Patient Disposition: Admit
Date of Disposition: 03/31/25
Time of Disposition: 18:15
Admit to: Med/Surg
Presentation/result/management discussed w/ accepting /: Hospitalist
Discharge Problem:
Weakness
Prescriptions:
No Action
loratadine 10 MG tablet
10 mg PO DAILY
multivitamin with folic acid [Tab-A-Rustam] 1 TABLET tablet
1 tab PO DAILY
mirabegron [Myrbetriq] 50 mg Tablet Extended Release 24 Hr
50 mg PO DAILY
quetiapine 25 mg tablet
50 mg PO HS
gabapentin 100 mg capsule
100 mg PO HS
rosuvastatin 20 mg tablet
20 mg PO DAILY
solifenacin 10 mg tablet
10 mg PO HS
meclizine 12.5 mg Tablet
12.5 - 25 mg PO TIDPRN PRN (Reason: vertigo)
sertraline [Zoloft] 25 mg Tablet
25 mg PO HS
aspirin [Aspir-81] 81 mg Tablet,Delayed Release (Dr/Ec)
81 mg PO DAILY
amitriptyline 10 mg Tablet
10 mg PO DAILY
diazepam 2 mg Tablet
2 mg PO BIDPRN PRN (Reason: severe vertigo)
Patient Comments:
03/25/2024: last filled 02/21/24, 30 tabs for [facility] days from [facility]
docusate sodium [Colace] 100 mg Capsule
100 mg PO DAILY
melatonin 5 mg Tablet
10 mg PO HS
clopidogrel [Plavix] 75 mg tablet
75 mg PO DAILY Qty: 30 0RF
Referrals:
Ajay Pearson DO [Family Provider, Family Practice]
Interventions
Interventions:
*Risk Screen - Suicide Last Done: 03/31/25 13:59
*General Assessment Last Done: 03/31/25 15:22
*Neglect/Abuse Screening Last Done: 03/31/25 13:59
*ED- Fall Risk Assessment Last Done: 03/31/25 15:22
*ED COVID-19 Vaccine History Last Done: 03/31/25 16:16
ED- Cardiac Assessment Last Done: 03/31/25 15:22
ED- Neurological Assessment Last Done: 03/31/25 15:22
ED- Pulmonary Assessment Last Done: 03/31/25 15:22
Discharge Date and Time
Print Language: CAMEROONIAN
[2025-03-31 16:35] LABS: Urine Character Slightly Cloudy (Clear)
[2025-03-31 16:42] LABS: Urine Red Blood Cell 0-2 /HPF (0-2); Urine Squamous Cell 0-2 /LPF (Few); Urine White Cell 0-2 /HPF (0-5)
--- NOTE | 2025-03-31 16:47 | CM ---
Addendum entered by Berta Hensley 04/01/25 16:34:
Pt's will drive [place] [facility]. Needs to leave by 12noon.
Original Note:
CM reviewed chart and met with pt and bedside in ED. Lives with in split level home, 2-3 [address]
Pt requires assistance with ADLs and personal care, is caregiver. Uses rollator for ambulation but per has been getting weaker.
[facility] hospital bed and [facility] per . Also has rollator, cane, shower chair and shower rails.
is tearful, feels overwhelmed with his care. States all other family embers work and can provide minimal support.
Per , pt does not want to go to SNF, told he he would refuse.
She requested a referral to [facility], referral sent via [facility]. I also provided her with a list of private pay caregiver agencies.
Pt has an appointment with [facility] in [place] on Wednesday.
PCP: Ajay Pearson
Pharmacy: [facility] [address]
Dr Whitehead updated, awaiting test results.
--- NOTE | 2025-03-31 18:48 | HPS.HSE ---
Family Physician
-
Family Physician: Ajay Pearson
Chief Complaint
-
Inability to ambulate
History of Present Illness
The patient is a 74-year-old gentleman with past medical history significant for Parkinson's disease and Lewy body dementia who presents to the emergency department secondary to generalized weakness, fatigue with inability to ambulate on his own.
His is his primary pharmaceutical worker and she has been having difficulty getting him up. She had to call and a strong neighbor to help get the patient into the car. She says that his weakness and fatigue is intermittent and unpredictable. In the
emergency department he did not have any evidence for an acute infection. He has not been having fevers. He has an appointment with the [facility] on Wednesday to discuss home health care. In the emergency department the patient was
evaluated by physical therapy who said it was not safe for him to go home.
Medical History
Past Medical History
Past Medical History: Reports Other
Additional Past Medical History:
Parkinson
Lewy body dementia
migraines
UTI
CAD
HLD
sleep apnea
Past Surgical History: Reports Other
Additional Past Surgical History:
bladder stimulator implant
b/l knee surgery
cataracts surgery
Social History
Tobacco: Former Smoker
Alcohol: None
Drug: None
Personal:
Living: With Family
Employment: Retired
Family History
Family History: Not pertinent
Allergies / Home Medications
Allergies reflects when Allergies were last updated in [facility].
Home Medications with original date entered in [facility]
Allergy/Medication List:
Allergies
Allergy/AdvReac Type Severity Reaction Status Date / Time
hyoscyamine (From Uribel) Allergy Hives Verified 03/31/25 14:00
Iodinated Contrast Media Allergy Hives Verified 03/31/25 14:00
(Iodinated Contrast Media -
IV Dye)
methenamine (From Uribel) Allergy Hives Verified 03/31/25 14:00
methylene blue (From Uribel) Allergy Hives Verified 03/31/25 14:00
salicylates (From Uribel) Allergy Hives Verified 03/31/25 14:00
sodium phosphate (From Allergy Hives Verified 03/31/25 14:00
Uribel)
Sulfa (Sulfonamide Allergy Unknown Verified 03/31/25 14:00
Antibiotics)
Home Medications
loratadine 10 mg tablet 10 mg PO DAILY Allergies 07/24/21
multivitamin with folic acid 400 mcg tablet (Tab-A-Rustam) 1 tab PO DAILY Supplement 07/24/21
mirabegron 50 mg tablet,extended release 24 hr (Myrbetriq) 50 mg PO DAILY Urinary Issue 06/15/22
gabapentin 100 mg capsule 100 mg PO HS Neurological Condition 03/18/23
quetiapine 25 mg tablet 50 mg PO HS Depression 03/18/23
rosuvastatin 20 mg tablet 20 mg PO DAILY High Cholesterol 03/18/23
solifenacin 10 mg tablet 10 mg PO HS Urinary Issue 03/18/23
meclizine 12.5 mg tablet 12.5 - 25 mg PO TIDPRN PRN vertigo 07/09/23
sertraline 25 mg tablet (Zoloft) 25 mg PO HS 07/09/23
amitriptyline 10 mg tablet 10 mg PO DAILY 03/25/24
aspirin 81 mg tablet,delayed release 81 mg PO DAILY 03/25/24
clopidogrel 75 mg tablet (Plavix) 75 mg PO DAILY #30 tabs 03/25/24
diazepam 2 mg tablet 2 mg PO BIDPRN PRN severe vertigo 03/25/24
docusate sodium 100 mg capsule (Colace) 100 mg PO DAILY 03/25/24
melatonin 5 mg tablet 10 mg PO HS 03/25/24
Review of Systems
-
A 12 point ROS was completed and negative except as noted: Yes
Physical Exam
Vital Signs
Vital Signs
Temp Pulse Resp BP Pulse Ox
98.0 F 74 17 147/85 94
03/31/25 13:59 03/31/25 18:45 03/31/25 18:45 03/31/25 17:00 03/31/25 18:45
Physical Exam
General: Appears Chronically Ill
HEENT: NormoCephalic and Anicteric
Respiratory: Clear
Cardiac: S1/S2 and Regular Rhythm
GI: Soft, Non Tender, Non Distended and Normal Bowel Sounds
Musculoskeletal: No Clubbing, No Cyanosis and No Edema
Skin: Warm and Dry
Neuro: Awake, Alert and Tremors (Pill-rolling tremor bilateral hands)
Laboratory Results
-
03/31/25 14:10
03/31/25 14:10
Laboratory Results
Total Bilirubin Cancelled 03/31/25 14:10
AST Cancelled 03/31/25 14:10
ALT Cancelled 03/31/25 14:10
Alkaline Phosphatase Cancelled 03/31/25 14:10
Data Reviewed
-
Medical Tests (Nuc Med, Echo, EKG etc): Image Personally Visualized and interpreted (EKG without evidence for acute ischemia, atrial sensed ventricular paced rhythm noted) and Report Reviewed by me
Impression/Plan
-
IMPRESSION:
# Inability to ambulate secondary to multiple comorbidities including Parkinson's disease and Lewy body dementia
- Admit the patient to observation level of care
- The patient's has been his pharmaceutical worker and can no longer lift him
- Physical therapy evaluated the patient in the emergency department and recommended [id number] care for the patient
- Case management consultation regarding placement versus 24/ care at home
- Physical therapy evaluation
- Continue home medications
- Discussed [facility] to discuss home care options, appointment is on Wednesday
Obstructive sleep apnea
- Home settings are 4-14
- Will use hospital BiPAP and set it at 10 and have respiratory therapy evaluate the patient
Chronic medical conditions:
Parkinson
-Continue home medications
Lewy body dementia
migraines
CAD
HLD
sleep apnea
Bladder stimulator, Medtronic
DVT prophylaxis-Lovenox
Full code
[2025-03-31 20:26] LABS: ALT (SGPT) 46 U/L (0-50); AST (SGOT) 26 U/L (17-59); Albumin 4.2 g/dl (3.5-5.0); Alkaline Phosphatase 45 U/L (38-126); Potassium 4.0 mmol/L (3.5-5.1); Total Protein 6.8 g/dl (6.3-8.2)
[2025-03-31] MEDS: ANTIVERT 25 MG PO (21:52)
[2025-03-31] MEDS: MELATONIN 10 MG PO (21:52)
[2025-03-31] MEDS: ZOLOFT 25 MG PO (21:53)
[2025-03-31] MEDS: SEROQUEL 25 MG PO (21:53)
[2025-03-31] MEDS: NEURONTIN 100 MG PO (21:53)
[2025-03-31] MEDS: ELAVIL 10 MG PO (21:53)
[2025-03-31] MEDS: COLACE 100 MG PO (21:53)
[2025-03-31] MEDS: MILK OF MAGNESIA 15 ML PO (21:53)
--- NOTE | 2025-03-31 22:55 | PTCARENOTE ---
Pt admitted from ED to 321 via stretcher. Pt ambulated to bed with Assist x2; unsteady gait. Pt AAOx3 on admission. Pt with hx of Lewy body dementia and per , pt sun downs and hallucinates at night. Denies pain. + hand tremors at baseline.
Lungs clear, pt on room air. Good appetite. Pt incontinent at times, urinal provided. Skin intact. Bed alarm in place and call torres within reach.
[2025-04-01] VITALS (8 sets, daily range): BP systolic 121–143; BP diastolic 70–94; PULSE 68–96; BMI 24.9
[2025-04-01] MEDS: MYRBETRIQ EXTENDED RELEASE 50 MG PO (07:59)
[2025-04-01] MEDS: NEURONTIN 100 MG PO ×2 (07:59→20:28)
[2025-04-01] MEDS: ANTIVERT 25 MG PO ×2 (07:59→20:28)
[2025-04-01] MEDS: CLARITIN 10 MG PO (07:59)
[2025-04-01] MEDS: CRESTOR 20 MG PO (07:59)
[2025-04-01] MEDS: ASPIR LOW (ENTERIC COATED) 81 MG PO (07:59)
--- NOTE | 2025-04-01 08:35 | W.PN.HOSP.TC ---
Today's Communication/Plan
-
ORTHOSTATIC VITALS
cbc, cmp
Assessment / Plan
Assessment / Plan
Generalized weakness secondary to parkinson disease, Lewy body dementia:
PT/OT consulted and recommending SNF versus 12/04 care.
To consider IP neurology for initiation on levodopa-carbidopa and other specific therapies for Parkinson's, if stable may be able to follow-up as OP to begin treatment.
Overactive Bladder:
patient currently taking Mirabegron ER 50 mg , Tolterodine 4 mg
Medtronic (Bladder Stimulator)
DVT prophylaxis: Lovenax 40mg
Disposition: SNF (PENDING decision)
Anticipated Discharge: 24 - 48 hours
Subjective/Interval History
-
Date of Service: April 01, 2025
Obtained history from the patient, He is oriented to name, time, place, he feels weak, not able to walk for short distance.
Objective Data
-
Vital Signs:
03/31/25 14:10
03/31/25 20:05
Laboratory Results
Total Bilirubin 0.6 mg/dl (0.2-1.3) 03/31/25 20:05
AST 26 U/L (17-59) 03/31/25 20:05
ALT 46 U/L (0-50) 03/31/25 20:05
Alkaline Phosphatase 45 U/L (38-126) 03/31/25 20:05
Vital Signs
Temp Pulse Resp BP Pulse Ox
97.5 F 75 17 121/70 97
04/01/25 07:00 04/01/25 07:00 04/01/25 07:00 04/01/25 07:00 04/01/25 07:00
I&O
03/31/25 04/01/25 04/02/25
06:59 06:59 06:59
Intake Total 360 / 360
Output Total 129 / 129
Balance 231 / 231
Review of Systems
-
History Source: Patient
Constitutional: Reports Weakness
EENT: Reports No Symptoms Reported
Respiratory: Reports No Symptoms
Cardiac: Reports No Symptoms
Abdomen/GI: Reports No Symptoms
Genitourinary: Reports No Symptoms
Musculoskeletal: Reports No Symptoms
Neuro: Reports Weakness and Tremors (resting tremor)
Hematologic / Lymphatic: Reports No Symptoms
Allergy / Immunology: Reports No Symptoms
Physical Exam
-
HEENT: PERRLA
Respiratory: Clear to Auscultation
Cardiac: Regular Rhythm and S1/S2
GI: Soft and Nontender
Neuro: AO x 3, No Motor Deficits (slow in movement), Tremors (resting tremor) and Nonfocal/Grossly Intact
Hematologic / Lymphatic: No Lymphadenopathy
Psych: Calm
[2025-04-01] MEDS: NON-FORMULARY ITEM 1 UNIT PO (10:07)
--- NOTE | 2025-04-01 13:21 | CONS.URO ---
Consultation
-
Date/Time Consultation Performed: 1320 04/01/25
Performing Provider: Peffer
Reason for Consultation: Retention
Medical History
History of Present Illness
74M with hx of BPH s/p TURP at in 2020
Low grade prostate cancer diagnosed at that time, now on surveillance
History of neurogenic bladder with Parkinson's dz on multiple OAB medications and s/p Interstim placement
03/2019 TRUSP 38 cc; PVR 45 ml; Myrbetriq trial: 'worked but my blood pressure went too high'
referred to Neuro for PD eval --> dx confirmed; Sinemet initiated
07/21/2021 VUDS
07/21-11/2020 hospitalized at [facility] for UTI; Bass placed
07/24-04/2021 admission: Levofloxacin for Pseudomonas sepsis [Urine cx showed no growth]
09/17/2021 TURP: T1a prostate adenocarcinoma detected
12/2021 MRI: no discernible prostate cancer
03/2022 Interstim implanted
07/2022 [facility]; TIA's; light-headed, chest pressure; wearing heart monitor
SOME INCONTINENCE since Quietepine.
Persistent frequency/urgency managed on myrbetriq and solifenacin
Admitted for worsening functional and mental status at home
Has had low UOP since admission
He voided 100cc and PVR was 315cc at 6am
Latest bladder scan 500cc this afternoon
Review of outpatient chart shows no recent renal US or PVR measurements over past few years
Past Medical History
Past Medical History: Other (Parkinson Lewy body dementia migraines UTI CAD HLD sleep apnea)
Past Surgical History: Other (TURP, Interstim)
Social History
Tobacco: Non-smoker
Alcohol: None
Family History
Family History: Reviewed & Not Pertinent
Allergies/Home Medications
Allergies
Allergy/AdvReac Type Severity Reaction Status Date / Time
hyoscyamine (From Uribel) Allergy Hives Verified 03/31/25 14:00
Iodinated Contrast Media Allergy Hives Verified 03/31/25 14:00
(Iodinated Contrast Media -
IV Dye)
methenamine (From Uribel) Allergy Hives Verified 03/31/25 14:00
methylene blue (From Uribel) Allergy Hives Verified 03/31/25 14:00
salicylates (From Uribel) Allergy Hives Verified 03/31/25 14:00
sodium phosphate (From Allergy Hives Verified 03/31/25 14:00
Uribel)
Sulfa (Sulfonamide Allergy Unknown Verified 03/31/25 14:00
Antibiotics)
Home Medications
�Medication �Instructions �Recorded �Confirmed �Type
loratadine 10 mg tablet 10 mg PO DAILY Allergies 07/24/21 03/31/25 History
mirabegron 50 mg tablet,extended 50 mg PO DAILY Urinary Issue 06/15/22 03/31/25 History
release 24 hr (Myrbetriq)
gabapentin 100 mg capsule 100 mg PO BID Neurological 03/18/23 03/31/25 History
Condition
quetiapine 25 mg tablet 25 mg PO HS Depression 03/18/23 03/31/25 History
rosuvastatin 20 mg tablet 20 mg PO DAILY High Cholesterol 03/18/23 03/31/25 History
solifenacin 10 mg tablet 10 mg PO QPM Urinary Issue 03/18/23 03/31/25 History
sertraline 25 mg tablet (Zoloft) 25 mg PO QPM Mental Health/Anxiety 07/09/23 03/31/25 History
amitriptyline 10 mg tablet 10 mg PO QPM Mental Health/Anxiety 03/25/24 03/31/25 History
aspirin 81 mg tablet,delayed 81 mg PO DAILY Blood Clot 03/25/24 03/31/25 History
release Prevention/Tx
docusate sodium 100 mg capsule 100 mg PO QPM STOOL SOFTENER 03/25/24 03/31/25 History
(Colace)
magnesium hydroxide 1,200 mg 1 mg PO QPM Constipation 03/31/25 03/31/25 History
chewable tablet (Dulcolax
(magnesium hydroxide))
meclizine 25 mg tablet 25 mg PO BID DIZZINESS 03/31/25 03/31/25 History
melatonin 10 mg tablet 10 mg PO HS Sleep 03/31/25 03/31/25 History
Physical Exam
Vital Signs
Vital Signs
Temp Pulse Resp BP Pulse Ox
98.6 F 88 16 128/74 95
04/01/25 11:11 04/01/25 11:11 04/01/25 11:11 04/01/25 11:11 04/01/25 11:11
Lab / Testing Results
Laboratory Results
03/31/25 14:10
03/31/25 20:05
Physical Exam
General: Well Developed and Well Nourished
Respiratory: Clear and Non Labored Respirations
GI: Soft and Non Tender
Genito-urinary: No Costovertebral Tend
Neuro: AO x 3
Psych: Calm and Intact Judgement
Assessment / Plan
-
74M with Parkinson's disease, Lewy body dementia
History of BPH s/p TURP
Neurogenic bladder with frequency and urge incontinence s/p interstim placement in 2021
Admitted with worsening ability to function at home, progression of weakness and ambulatory dysfunction
Noted to have urinary retention with post void residuals 300-500cc
- Suspect worsening of neurogenic bladder function coinciding with worsening of ambulatory function
- Recommend bass catheter placement or starting CIC q4 hours
- Discontinue myrbetriq and solifenacin - can possibly resume at a later date outpatient if retention improves
- Outpatient follow up with Dr. Ann for trial of void and to consider repeat urodynamics testing to assess ability to empty
--- NOTE | 2025-04-01 15:33 | PTCARENOTE ---
Boucher 16F placed without issue, per urology, draining pale yellow urine. Pt resting comfortably
[2025-04-01] MEDS: ELAVIL 10 MG PO (17:20)
[2025-04-01] MEDS: COLACE 100 MG PO (17:20)
[2025-04-01] MEDS: DETROL LA 4 MG PO (17:20)
[2025-04-01] MEDS: ZOLOFT 25 MG PO (17:20)
[2025-04-01] MEDS: MILK OF MAGNESIA 15 ML PO (17:20)
[2025-04-01] MEDS: LOVENOX 40 MG SC (17:28)
[2025-04-01] MEDS: SEROQUEL 25 MG PO (21:30)
[2025-04-01] MEDS: MELATONIN 10 MG PO (21:30)
[2025-04-02 06:34] LABS: Hematocrit 44.2 % (39.0-52.0); Hemoglobin 15.1 g/dL (13.0-18.0); Mean Corp Hgb Conc. 34.2 g/dL (33.0-37.0); Mean Corpuscular Volume 94.8 fL (80.0-94.0); Nucleated Red Blood Cells % 0 % (-); Platelet Count 150 10^3/uL (130-400); Red Cell Dist. Width 12.5 % (11.5-14.5)
--- NOTE | 2025-04-02 06:42 | W.PN.HOSP.TC ---
Addendum entered and electronically signed by Reese Hernandez MD 04/03/25 08:43:
Total time spent with family discussing disposition was approximately 86 minutes
Presented with progressive worsening and Parkinson's with Lewy body dementia. Unable to afford his to continue to care for him at home without causing danger to herself or to Mr. Leon as he was previously able to assist his and
ambulation but now is fully dependent on her. This poses a significant fall risk for both of them which could potentially lead to fractures brain bleed and even . [facility] and he was exposed to
agent orange in [place]. Therefore, we were able to get his PCPs number from Ms. Leon. My resident was able to discuss the case with Dr. Casper at the [facility]. He informed us that he would have social work reach out to our social
work to set up home health aides. He stated that there should not take more than 1 or 2 days to set up and he should be eligible for approximately 20 hours. Therefore at this time we will keep him as inpatient and when everything is set up at home
we will go ahead and discharge him home to allow for safe discharge otherwise if we discharged him right now would be concerned that me would be posing severe harm to his or to himself.
Additionally, we did discuss about potential of going to SNF. He is against this option at this time. I do believe this is more of a money issue rather than anything else.
Original Note:
Today's Communication/Plan
-
repeat cbc, cmp
Consult for rehab
Assessment / Plan
Assessment / Plan
Generalized weakness secondary to parkinson disease, Lewy body dementia:
Orthostatic vitals for this patient on right arm:
Supine- 127/85 [place]- 90
Sitting- 127/94 [place]- 82
Standing-128/85, [place]- 96
PT/OT consulted and recommending SNF versus 24/7 care.
To consider IP neurology for initiation on levodopa-carbidopa and other specific therapies for Parkinson's,
if stable may be able to follow-up as OP to begin treatment.
Overactive Bladder:
patient currently taking Mirabegron ER 50 mg , Tolterodine 4 mg
Medtronic (Bladder Stimulator)
DVT prophylaxis: Lovenax 40mg
Disposition: Rehab (PENDING STATUS)
Anticipated Discharge: Within 24 hours
Subjective/Interval History
-
Date of Service: April 02, 2025
Patient had Generalized weakness.
Objective Data
-
Labs:
Laboratory Results
04/02/25 05:59
04/02/25 05:59
Laboratory Results
Total Bilirubin 0.8 mg/dl (0.2-1.3) 04/02/25 05:59
AST 24 U/L (17-59) 04/02/25 05:59
ALT 41 U/L (0-50) 04/02/25 05:59
Alkaline Phosphatase 49 U/L (38-126) 04/02/25 05:59
Vital Signs:
Vital Signs
Temp Pulse Resp BP Pulse Ox
98.1 F 83 18 124/73 97
04/01/25 23:00 04/01/25 23:00 04/01/25 23:00 04/01/25 23:00 04/01/25 23:00
I&O
03/31/25 04/01/25 04/02/25
06:59 06:59 06:59
Intake Total 1320 / 1320
Output Total 1424 / 1424
Balance -104 / -104
Review of Systems
-
History Source: Patient
All other systems: Reviewed and negative
Physical Exam
-
General: No Apparent Distress
Respiratory: Clear to Auscultation
Cardiac: Regular Rhythm and S1/S2
GI: Soft, Nontender and Nondistended
Genito-urinary: No Costovertebral Tender
Musculoskeletal: No Clubbing
Skin: Warm
Neuro: AO x 3 and Tremors (resting tremor +)
Hematologic / Lymphatic: No Lymphadenopathy
Psych: Calm
[2025-04-02 07:02] LABS: ALT (SGPT) 41 U/L (0-50); AST (SGOT) 24 U/L (17-59); Albumin 4.1 g/dl (3.5-5.0); Alkaline Phosphatase 49 U/L (38-126); Blood Urea Nitrogen 15 mg/dl (9-20); Calcium 9.5 mg/dl (8.4-10.2); Carbon Dioxide 28 mmol/L (22-30); Chloride 110 mmol/L (98-107); Estimated Creatinine Clearance 71 ml/min; Glucose 108 mg/dl (70-99); Potassium 4.1 mmol/L (3.5-5.1); Sodium 141 mmol/L (135-145); Total Protein 6.7 g/dl (6.3-8.2); eGFR > 60.00
[2025-04-02 07:15] VITALS: BP 123/76
[2025-04-02] MEDS: CLARITIN 10 MG PO (08:26)
[2025-04-02] MEDS: CRESTOR 20 MG PO (08:26)
[2025-04-02] MEDS: ASPIR LOW (ENTERIC COATED) 81 MG PO (08:26)
[2025-04-02] MEDS: ANTIVERT 25 MG PO ×2 (08:26→20:32)
[2025-04-02] MEDS: NEURONTIN 100 MG PO ×2 (08:26→20:32)
[2025-04-02] MEDS: NON-FORMULARY ITEM 1 UNIT PO (08:27)
--- NOTE | 2025-04-02 12:34 | CM ---
Patient and seen at bedside
CM consult completed. vn
PT eval SNF vs. VN
resident spoke with Dr. Laz Casper at [facility] in [place] regarding plan
Dr. Casper called CM & stated that SW will call CM back regarding eligibility for caregiver services at home
Discussed with patient he may need SNF placement - agreeable if needed
--- NOTE | 2025-04-02 12:39 | CM ---
Patient seen at bedside with
CM consult completed.
PT rec SNF vs. VN
resident spoke with Dr. Laz Casper at [facility] in [place]
Dr. Laz Casper called CM & stated he will have the [place] licensed social worker call CM regarding client experience administrator services for patient
Discussed with patient may need SNF - was agreeable if needed
Resources were provided to regarding private duty caregivers
PLAN: SNF vs. Home with VN & caregivers, Await [place] asbestos hazard abatement worker to call
[2025-04-02 15:00] VITALS: BP 123/71
[2025-04-02 16:08] VITALS: BP 123/71
[2025-04-02] MEDS: LOVENOX 40 MG SC (17:10)
[2025-04-02] MEDS: COLACE 100 MG PO (17:10)
[2025-04-02] MEDS: DETROL LA 4 MG PO (17:10)
[2025-04-02] MEDS: ZOLOFT 25 MG PO (17:10)
[2025-04-02] MEDS: MILK OF MAGNESIA 15 ML PO (17:10)
[2025-04-02] MEDS: ELAVIL 10 MG PO (17:12)
[2025-04-02] MEDS: MELATONIN 10 MG PO (21:46)
[2025-04-02] MEDS: SEROQUEL 25 MG PO (21:46)
[2025-04-02 23:00] VITALS: BP 121/70
[2025-04-03 07:00] VITALS: BP 105/65
[2025-04-03 07:10] LABS: Hematocrit 42.6 % (39.0-52.0); Hemoglobin 14.7 g/dL (13.0-18.0); Mean Corp Hgb Conc. 34.5 g/dL (33.0-37.0); Mean Corpuscular Volume 95.5 fL (80.0-94.0); Nucleated Red Blood Cells % 0 % (-); Platelet Count 149 10^3/uL (130-400); Red Cell Dist. Width 12.5 % (11.5-14.5)
[2025-04-03] MEDS: NON-FORMULARY ITEM 1 UNIT PO (07:39)
[2025-04-03] MEDS: CLARITIN 10 MG PO (07:39)
[2025-04-03] MEDS: ASPIR LOW (ENTERIC COATED) 81 MG PO (07:39)
[2025-04-03] MEDS: CRESTOR 20 MG PO (07:39)
[2025-04-03] MEDS: NEURONTIN 100 MG PO ×2 (07:40→20:02)
[2025-04-03] MEDS: ANTIVERT 25 MG PO ×2 (07:41→20:02)
[2025-04-03 07:54] LABS: ALT (SGPT) 38 U/L (0-50); AST (SGOT) 22 U/L (17-59); Albumin 3.9 g/dl (3.5-5.0); Alkaline Phosphatase 52 U/L (38-126); Blood Urea Nitrogen 13 mg/dl (9-20); Calcium 9.2 mg/dl (8.4-10.2); Carbon Dioxide 25 mmol/L (22-30); Chloride 109 mmol/L (98-107); Estimated Creatinine Clearance 71 ml/min; Glucose 109 mg/dl (70-99); Potassium 3.9 mmol/L (3.5-5.1); Sodium 140 mmol/L (135-145); Total Protein 6.6 g/dl (6.3-8.2); eGFR > 60.00
--- NOTE | 2025-04-03 12:44 | CM ---
Addendum entered by Leidy Michael 04/03/25 13:13:
The [facility] in [facility] plan to review patient's chart, outpatient case manager faxed clinical to .
Omaira Dalal [phone] admissions at the [facility].
Original Note:
Chart reviewed and physical therapy are recommending home v's skilled placement, plan was to home with [facility] services but spouse wants patient to go to a skilled facility for rehab to give her time to setup patient's home, outpatient case manager reviewed options
VA facilities and patient's spouse is requesting [facility], [facility] and also reviewing [facility], referrals sent.
transportation operations manager spoke with Dr. Laz Casper at [facility] in [place]
and patients school social worker at the [facility] is off this week and covering school social worker to reach out to outpatient case manager
Plan; Skilled placement.
--- NOTE | 2025-04-03 14:48 | W.PN.HOSP.TC ---
Addendum entered and electronically signed by Reese Hernandez MD 04/04/25 16:02:
History and are now agreeable to SNF. He had a fall begin working towards this direction for his disposition.
Original Note:
Today's Communication/Plan
-
Psychiatry consulted
Assessment / Plan
Assessment / Plan
#Generalized weakness secondary to parkinson disease, Lewy body dementia:
Orthostatic vitals for this patient on right arm:
Supine- 127/85 [place]- 90
Sitting- 127/94 [place]- 82
Standing-128/85, [place]- 96
patient is in agitated state, and on Amitriptyline 10mg QPM, Gabapentin 100mg/BID, Quetiapine Fumarate 25 mg QPM
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
#PT/OT consulted and recommending SNF versus 24/ care.
To consider neurology for initiation on levodopa-carbidopa and other specific therapies for Parkinson's,
if stable may be able to follow-up as OP to begin treatment.
#Overactive Bladder:
patient currently taking Mirabegron ER 50 mg , Tolterodine 4 mg
Medtronic (Bladder Stimulator)
DVT prophylaxis: Lovenax 40mg
Disposition: Rehab (PENDING STATUS)
Anticipated Discharge: 24 - 48 hours
Subjective/Interval History
-
Date of Service: April 03, 2025
Objective Data
-
Labs:
04/03/25 06:18
04/03/25 06:18
Laboratory Results
Total Bilirubin 0.7 mg/dl (0.2-1.3) 04/03/25 06:18
AST 22 U/L (17-59) 04/03/25 06:18
ALT 38 U/L (0-50) 04/03/25 06:18
Alkaline Phosphatase 52 U/L (38-126) 04/03/25 06:18
Laboratory Results
04/03/25
06:18
WBC 7.2
Hgb 14.7
Hct 42.6
Plt Count 149
Sodium 140
Potassium 3.9
Chloride 109 H
Carbon Dioxide 25
BUN 13
Creatinine 0.9
Glucose 109 H
Calcium 9.2
Total Bilirubin 0.7
AST 22
ALT 38
Alkaline Phosphatase 52
Vital Signs:
Vital Signs
Temp Pulse Resp BP Pulse Ox
97.7 F 69 17 105/65 95
04/03/25 07:00 04/03/25 07:00 04/03/25 07:00 04/03/25 07:00 04/03/25 07:00
I&O
04/02/25 04/03/25 04/04/25
06:59 06:59 06:59
Intake Total 1320 / 1320 960 / 960
Output Total 1424 / 1424 975 / 975
Balance -104 / -104 -15 / -15
Review of Systems
-
History Source: Patient and Family ( was there. )
Constitutional: Reports Weakness
EENT: Reports No Symptoms Reported
Respiratory: Reports No Symptoms
Cardiac: Reports No Symptoms
Abdomen/GI: Reports No Symptoms
Genitourinary: Reports No Symptoms
Musculoskeletal: Reports No Symptoms
Skin: Reports No Symptoms
Endocrine: Reports No Symptoms
Hematologic / Lymphatic: Reports No Symptoms
Allergy / Immunology: Reports No Symptoms
Psych: Reports Other (Patient is agitated. )
Physical Exam
-
General: No Apparent Distress
Respiratory: Clear to Auscultation
Cardiac: Regular Rhythm and S1/S2
GI: Soft and Nontender
Genito-urinary: No Costovertebral Tender
Skin: Warm
Neuro: AO x 3 and Tremors (resting tremor +)
Hematologic / Lymphatic: No Lymphadenopathy
Psych: Agitated
[2025-04-03 15:00] VITALS: BP 120/86
[2025-04-03 15:16] VITALS: BP 120/86; PULSE 93; O2SAT 95
--- NOTE | 2025-04-03 17:38 | CS.PSYCHR ---
Consult Summary - Psychiatry
-
Pt is a 72 yo male with Parkinson's and Lewy Body dementia, reportedly having sundowning/agitation at night, with hallucinations, yelling out, seeing people, seeing his dog that . Pt seen with , who provided history. Pt sitting up in
chair, alert, making eye contact, giving some answers. 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 Pt states he is 'afraid of being shot.' reports sleep
agents have made symptoms worse, pt seems to be more sensitive to medications. She reports BP was dropping on medications for hypertension and they were stopped. Pt has vertigo per . Pt is on 2 antidepressants, Elavil is for bladder issues.
Pt reportedly had worse insomnia, was yelling out when Seroquel was increased. reports pt was tried on Clozaril at some point. also reports EEG abnormalities, 3 TIA's and a mild stroke. Pt reportedly barely stands or walks now; she is
increasingly concerned about being able to manage his medical needs at home.
Psych Hx: no past treatment, never had therapy for combat experience/sleep disturbance. Current home meds- Zoloft 25 mg QD, Seroquel 25 mg HS, melatonin 10 mg HS
SH: , lives with . Reportedly his health was affected by agent[place] per
MSE: alert, calm, cooperative, sitting up in chair. Bilat resting hand tremor. No agitation. Mood stable, affect somewhat blunted. Speech coherent, limited output, limited ability to give information. Insight limited to fair
Imp: Apparent Lewy Body dementia, Parkinsonism with nighttime agitation, reported visual hallucinations
Unspecified anxiety, R/o PTSD
Rec: Options are very limited/complicated by pt's parkinsonism and medical conditions.
Would continue current psychotropic agents and consider Lorazepam prn. Will follow
[2025-04-03] MEDS: COLACE 100 MG PO (18:01)
[2025-04-03] MEDS: MILK OF MAGNESIA 15 ML PO (18:01)
[2025-04-03] MEDS: DETROL LA 4 MG PO (18:01)
[2025-04-03] MEDS: ELAVIL 10 MG PO (18:01)
[2025-04-03] MEDS: ZOLOFT 25 MG PO (18:02)
[2025-04-03] MEDS: LOVENOX 40 MG SC (18:02)
[2025-04-03] MEDS: MELATONIN 10 MG PO (21:18)
[2025-04-03] MEDS: SEROQUEL 25 MG PO (21:18)
[2025-04-03 23:32] VITALS: BP 121/66
[2025-04-04 06:44] LABS: Hematocrit 44.3 % (39.0-52.0); Hemoglobin 15.1 g/dL (13.0-18.0); Mean Corp Hgb Conc. 34.1 g/dL (33.0-37.0); Mean Corpuscular Volume 95.7 fL (80.0-94.0); Nucleated Red Blood Cells % 0 % (-); Platelet Count 151 10^3/uL (130-400); Red Cell Dist. Width 12.3 % (11.5-14.5)
[2025-04-04 07:00] VITALS: BP 123/69
[2025-04-04 07:02] LABS: ALT (SGPT) 41 U/L (0-50); AST (SGOT) 25 U/L (17-59); Albumin 4.1 g/dl (3.5-5.0); Alkaline Phosphatase 56 U/L (38-126); Blood Urea Nitrogen 11 mg/dl (9-20); Calcium 9.2 mg/dl (8.4-10.2); Carbon Dioxide 29 mmol/L (22-30); Chloride 107 mmol/L (98-107); Estimated Creatinine Clearance 71 ml/min; Glucose 105 mg/dl (70-99); Potassium 3.9 mmol/L (3.5-5.1); Sodium 141 mmol/L (135-145); Total Protein 6.6 g/dl (6.3-8.2); eGFR > 60.00
[2025-04-04] MEDS: CRESTOR 20 MG PO (07:31)
[2025-04-04] MEDS: NON-FORMULARY ITEM 1 UNIT PO (07:31)
[2025-04-04] MEDS: ANTIVERT 25 MG PO ×2 (07:31→19:34)
[2025-04-04] MEDS: ASPIR LOW (ENTERIC COATED) 81 MG PO (07:31)
[2025-04-04] MEDS: CLARITIN 10 MG PO (07:31)
[2025-04-04] MEDS: NEURONTIN 100 MG PO ×2 (07:31→19:34)
--- NOTE | 2025-04-04 12:02 | W.PN.UPDATE ---
Addendum entered and electronically signed by Vicente Camacho MD 04/04/25 12:24:
given c.o weakness would check tsh reflex to t4
Addendum entered and electronically signed by Vicente Camacho MD 04/04/25 12:13:
please note the comment about aricept below was made in reference to a suggestion made by a staff member not appearing in this chart.
Original Note:
Update Note
Progress Note Update
patient seen chart reviewed. spoke with nursing. mr sandra has been cooperative and pleasant. he was chatty when i saw him. told me he was waiting for the news. he complained that his breakfast was cold although he appeared to have eaten much of
it. he told me about his family and identified all of the people in the pictures that were decorating his room. mr sandra has been dx w lewy body dementia and psych consult ordered for agitation. he is here w complaint of weakness. at this point
would not change seroquel zoloft and melatonin. i would dc elavil. he is now on myrbetriq and tolteridine which are more specific to bladder issues than elavil which can contribute to dementia sedation and urinary retention. also note meclizine
can contribute to fatigue as well. given chief complaint is weakness should be reassessed. would not use aricept for agitation. it actually can cause agitation in some patients and is unlikely to afford quick resolution of agitation in the
hospital setting. could use prn seroquel 12.5 mg if non med interventions ineffective. will look in on him tomorrow.
--- NOTE | 2025-04-04 14:31 | CM ---
Addendum entered by Leidy Michael 04/04/25 16:38:
Patient has been accepted at [facility] bed is available tomorrow [facility].
Original Note:
business affairs manager spoke with patient's spouse this am and left several messages for the [facility] to assist with discharge planning, paitn is covered 100% through the [facility] and patient needs to continue to use and [place] contracted facility for skilled placement, case
customer engagement manager finally received list of contracted facilities from Barbara Strong at the [facility] office and spouse is agreeable to referrals to [facility], referrals sent to both facilities, back up is [facility] and DME
form needs to be completed by physician.
Plan; Skilled placement v's [facility].
--- NOTE | 2025-04-04 14:39 | W.PN.HOSP.TC ---
Addendum entered and electronically signed by Reese Hernandez MD 04/04/25 16:02:
For SNF
Original Note:
Today's Communication/Plan
-
cbc, cmp
Disposition status is pending.
Assessment / Plan
Assessment / Plan
74 yrs old Male with past h/o Parkinson disease , Lewy Body dementia
#Generalized weakness secondary to parkinson disease, Lewy body dementia:
patient is in agitated state, and on Amitriptyline 10mg QPM, Gabapentin 100mg/BID, Quetiapine Fumarate 25 mg QPM
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
Current home medication includes- Zoloft 25 mg QD, Seroquel 25 mg HS, melatonin 10 mg HS, Gabapentin 100mg
could use prn seroquel 12.5 mg in addition to 25 mg of Seroquel if non med interventions ineffective.
Orthostatic vitals for this patient on right arm done on 2 days ago:
Supine- 127/85 WY- 90
Sitting- 127/94 WY- 82
Standing-128/85, WY- 96
#PT/OT consulted and recommending SNF versus / care.
To consider neurology for initiation on levodopa-carbidopa and other specific therapies for Parkinson's,
if stable may be able to follow-up as OP to begin treatment.
#Overactive Bladder:
patient currently taking Mirabegron ER 50 mg , Tolterodine 4 mg
Medtronic (Bladder Stimulator)
DVT prophylaxis: Lovenax 40mg
Disposition: Rehab (PENDING STATUS)
Anticipated Discharge: Within 24 hours
Subjective/Interval History
-
Date of Service: April 04, 2025
Patient is doing good, he doesnt has new concerns for today.
Current home meds- Zoloft 25 mg QD, Seroquel 25 mg HS, melatonin 10 mg HS
Objective Data
-
Labs:
04/04/25 06:11
04/04/25 06:11
Laboratory Results
Total Bilirubin 0.8 mg/dl (0.2-1.3) 04/04/25 06:11
AST 25 U/L (17-59) 04/04/25 06:11
ALT 41 U/L (0-50) 04/04/25 06:11
Alkaline Phosphatase 56 U/L (38-126) 04/04/25 06:11
Laboratory Results
04/04/25
06:11
WBC 7.6
Hgb 15.1
Hct 44.3
Plt Count 151
Sodium 141
Potassium 3.9
Chloride 107
Carbon Dioxide 29
BUN 11
Creatinine 0.9
Glucose 105 H
Calcium 9.2
Total Bilirubin 0.8
AST 25
ALT 41
Alkaline Phosphatase 56
Vital Signs:
Vital Signs
Temp Pulse Resp BP Pulse Ox
98.5 F 82 18 123/69 96
04/04/25 07:00 04/04/25 07:00 04/04/25 07:00 04/04/25 07:00 04/04/25 07:00
I&O
04/03/25 04/04/25 04/05/25
06:59 06:59 06:59
Intake Total 960 / 960 720 / 720
Output Total 975 / 975 1100 / 1100
Balance -15 / -15 -380 / -380
Review of Systems
-
History Source: Patient
Constitutional: Reports No Symptoms
Respiratory: Reports No Symptoms
Cardiac: Reports No Symptoms
Abdomen/GI: Reports No Symptoms
Genitourinary: Reports No Symptoms
Musculoskeletal: Reports No Symptoms
Skin: Reports No Symptoms
Neuro: Reports No Symptoms
Endocrine: Reports No Symptoms
Hematologic / Lymphatic: Reports No Symptoms
Physical Exam
-
General: Well Developed
Respiratory: Clear to Auscultation
Cardiac: Regular Rhythm and S1/S2
GI: Soft, Nontender and Nondistended
Genito-urinary: No Costovertebral Tender and Boucher (saturated urine)
Skin: Warm and Other (Actinic kerotosis- face )
Neuro: AO x 3
Hematologic / Lymphatic: No Lymphadenopathy
[2025-04-04 15:00] VITALS: BP 121/66
[2025-04-04] MEDS: SENOKOT-S 1 TABLET PO (16:08)
[2025-04-04] MEDS: MILK OF MAGNESIA 15 ML PO (17:00)
[2025-04-04] MEDS: ZOLOFT 25 MG PO (17:00)
[2025-04-04] MEDS: LOVENOX 40 MG SC (17:00)
[2025-04-04] MEDS: COLACE 100 MG PO (17:00)
[2025-04-04] MEDS: DETROL LA 4 MG PO (17:00)
[2025-04-04] MEDS: MIRALAX 17 GRAMS PO (19:34)
[2025-04-04] MEDS: MELATONIN 10 MG PO (21:03)
[2025-04-04] MEDS: SEROQUEL 25 MG PO (21:04)
[2025-04-04 23:46] VITALS: BP 130/71
[2025-04-05 06:19] LABS: Hematocrit 46.5 % (39.0-52.0); Hemoglobin 15.4 g/dL (13.0-18.0); Mean Corp Hgb Conc. 33.1 g/dL (33.0-37.0); Mean Corpuscular Volume 97.1 fL (80.0-94.0); Nucleated Red Blood Cells % 0 % (-); Platelet Count 147 10^3/uL (130-400); Red Cell Dist. Width 12.3 % (11.5-14.5)
--- NOTE | 2025-04-05 06:31 | W.PN.HOSP.TC ---
Addendum entered and electronically signed by Reese Hernandez MD 04/05/25 12:42:
for snf
Original Note:
Today's Communication/Plan
-
speaking with pillowcase folder regards SNF/va.
Assessment / Plan
Assessment / Plan
74 yrs old Male with past h/o Parkinson disease , Lewy Body dementia
#Generalized weakness secondary to parkinson disease, Lewy body dementia:
patient is in agitated state, and on Amitriptyline 10mg QPM, Gabapentin 100mg/BID, Quetiapine Fumarate 25 mg QPM
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
Current home medication includes- Zoloft 25 mg QD, Seroquel 25 mg HS, melatonin 10 mg HS, Gabapentin 100mg
could use prn seroquel 12.5 mg in addition to 25 mg of Seroquel if non med interventions ineffective.
Orthostatic vitals for this patient on right arm done on 2 days ago:
Supine- 127/85 RI- 90
Sitting- 127/94 RI- 82
Standing-128/85, RI- 96
#PT/OT consulted and recommending SNF versus 12/04 care.
To consider neurology for initiation on levodopa-carbidopa and other specific therapies for Parkinson's,
if stable may be able to follow-up as OP to begin treatment.
#Overactive Bladder:
patient currently taking Mirabegron ER 50 mg , Tolterodine 4 mg
Medtronic (Bladder Stimulator)
DVT prophylaxis: Lovenax 40mg
Disposition: Rehab (PENDING STATUS)
Anticipated Discharge: Today
Subjective/Interval History
-
Date of Service: April 05, 2025
Patient has no concerns for the overnight.
Objective Data
-
Labs:
Laboratory Results
04/05/25 05:52
04/05/25 05:52
Laboratory Results
Total Bilirubin 0.7 mg/dl (0.2-1.3) 04/05/25 05:52
AST 27 U/L (17-59) 04/05/25 05:52
ALT 40 U/L (0-50) 04/05/25 05:52
Alkaline Phosphatase 60 U/L (38-126) 04/05/25 05:52
Vital Signs:
Vital Signs
Temp Pulse Resp BP Pulse Ox
97.8 F 79 14 130/71 93
04/04/25 23:46 04/04/25 23:46 04/04/25 23:46 04/04/25 23:46 04/04/25 23:46
I&O
04/03/25 04/04/25 04/05/25
06:59 06:59 06:59
Intake Total 960 / 960 720 / 720 900 / 900
Output Total 975 / 975 1100 / 1100 1450 / 1450
Balance -15 / -15 -380 / -380 -550 / -550
Review of Systems
-
History Source: Patient
All other systems: Reviewed and negative
Physical Exam
-
General: Well Developed
Respiratory: Clear to Auscultation
Cardiac: Regular Rhythm and S1/S2
GI: Soft and Nontender
Genito-urinary: No Costovertebral Tender
Musculoskeletal: No Clubbing
Skin: Warm
Neuro: AO x 3 and Tremors (resting tremor)
Hematologic / Lymphatic: No Lymphadenopathy
[2025-04-05 06:46] LABS: ALT (SGPT) 40 U/L (0-50); AST (SGOT) 27 U/L (17-59); Albumin 4.2 g/dl (3.5-5.0); Alkaline Phosphatase 60 U/L (38-126); Blood Urea Nitrogen 15 mg/dl (9-20); Calcium 9.6 mg/dl (8.4-10.2); Carbon Dioxide 27 mmol/L (22-30); Chloride 107 mmol/L (98-107); Estimated Creatinine Clearance 64 ml/min; Glucose 105 mg/dl (70-99); Potassium 4.4 mmol/L (3.5-5.1); Sodium 144 mmol/L (135-145); Total Protein 7.0 g/dl (6.3-8.2); eGFR > 60.00
[2025-04-05] MEDS: CRESTOR 20 MG PO (07:12)
[2025-04-05] MEDS: NEURONTIN 100 MG PO (07:12)
[2025-04-05] MEDS: CLARITIN 10 MG PO (07:12)
[2025-04-05] MEDS: ASPIR LOW (ENTERIC COATED) 81 MG PO (07:12)
[2025-04-05] MEDS: ANTIVERT 25 MG PO (07:12)
[2025-04-05] MEDS: SENOKOT-S 1 TABLET PO (07:12)
[2025-04-05] MEDS: NON-FORMULARY ITEM 1 UNIT PO (07:13)
[2025-04-05 07:48] VITALS: BP 124/75
--- NOTE | 2025-04-05 08:57 | CM ---
Addendum entered by Leidy Michael 04/05/25 17:20:
Transport requesting Auth for ambulance on hold with [place] for 1:30 hours no answer.
Addendum entered by Leidy Michael 04/05/25 17:07:
Funding document received from the [place] that they have approved skilled placement for [facility] and paperwork has provided to [facility].
Addendum entered by Leidy Michael 04/05/25 15:32:
[facility]
Report [phone]

Ambulance transport.
Addendum entered by Leidy Michael 04/05/25 12:22:
Multiple calls placed to the [facility] today, patient will need VA funding for skilled facility, patient's case finishing machine adjuster at this time is Ayaka Swan [phone] her circulation supervisor is Manda Hartmann [phone].
parking lot manager faxed all clinicals to and call placed to admissions liaison for skilled facility to keep her updated on patient progress.
Plan; Waiting on Auth from the [facility] for skilled placement at [facility] today.
Original Note:
Patient has been accepted at [address] [address] today, call placed to the [place] office of [facility] for Auth, message left with admissions at [facility] [phone], no return call, messages left
for [facility] yesterday still no return call, case finishing machine adjuster spoke with [facility] liaison Bridgette [phone] yesterday who accepted patient.
Plan; To reach out to the [facility] patient's coverage for skilled placement, .
--- NOTE | 2025-04-05 12:06 | W.PN.UPDATE ---
Update Note
Progress Note Update
patient seen chart reviewed. at bedside . she gave me a good history of mr quintero's illness and their experience with providers at the [facility]. their neurologist has noted the progression of his disease since she started seeing him. a number of
med trials for psych issues including ptsd (he is a [employer] vet and while he never spoke about his experience for many years since he has been ill with PD it has risen to the forefront on more than one occasion as far as preoccupation at times with
his painful experience) agitation etc. she has made many modifications in their lives to make his life easier including renovating their home so he could avoid stairs and a new shower so he could easily bathe. she was very tearful as she told me
about their trip to [place] one last time at his request. he had told me about this yesterday. mr sandra was peaceful while his talked and seemed to look at her fondly. we talked about the only change i made in his meds which was to dc elavil.
also suggested that if ptsd sx come up to consider inc in zoloft. no changes made in his meds. they are hopefully being dc today to [facility] but transport is not yet arranged. i did suggest to to take care of herself...take time out
for herself. she told me she is a Type A+ personality and was trying last night in the heat to get their lawn mowed!
[2025-04-05 15:07] VITALS: BP 151/78
[2025-04-05] MEDS: ZOLOFT 25 MG PO (17:15)
[2025-04-05] MEDS: MILK OF MAGNESIA 15 ML PO (17:15)
[2025-04-05] MEDS: LOVENOX 40 MG SC (17:15)
[2025-04-05] MEDS: DETROL LA 4 MG PO (17:15)
[2025-04-05] MEDS: COLACE 100 MG PO (17:15)
[2025-04-05 19:21] VITALS: BP 133/74
--- NOTE | 2025-04-06 20:13 | W.DCSUMMARY ---
Discharge Summary
Discharge Data
Date of Admission: 04/01/25
Date of Discharge: 04/05/25
Total time spent discharging patient (in min): 10 mins
-
Pending Results: No
Hospital Course
Discharging Physician : Dr Keisha Mcgowan
Dr Reese Hernandez M.D.,
Disposition : [facility]
Primary care physician : Dr Ajay Pearson
Principal Discharge diagnosis : Generalized weakness secondary to Parkinson disease, Lewy body dementia.
Chronic Discharge diagnosis : Overactive Bladder.
migraines
UTI
CAD
HLD
sleep apnea
Hospital Course : 74-year-old gentleman with past medical history significant for Parkinson's disease and Lewy body dementia who presents to the emergency department secondary to generalized weakness, fatigue with inability to ambulate on his own.
His is his primary food scientist and she had been having difficulty getting him up. She had to call and a strong neighbor to help get the patient into the car. She said that his weakness and fatigue is intermittent and unpredictable. In the
emergency department he did not have any evidence for an acute infection. He had not been having fevers. He had an appointment with the [facility] on Wednesday to discuss home health care. The patient was evaluated by physical therapy
who said it was not safe for him to go home. SQ Lovenox prophylaxis were given. PT/OT consulted.Boucher's catheter were placed. Patient was stable at the course of hospitalization.
Important imaging findings : none
Procedure findings : none
Discharge Plan
-
Patient Disposition: [facility] SNF/Hospital
Discharge Diagnosis/Procedures: Ambulatory dysfunction, Parkinson's Dementia, Lewy Body Disease, Acute Urinary Retention
Condition: Fair
Diet: As tolerated
Activity: As tolerated
Driving Restrictions: As prior to admission
Other Services: VN, PT and OT
Referrals:
Ajay Pearson DO [Family Provider, Family Practice]
Prescriptions:
New
quetiapine 25 mg tablet
12.5 mg PO PRN PRN (Reason: withdrawal symptoms) Qty: 30 0RF
mirabegron 50 mg tablet extended release 24 hr
50 mg PO DAILY Qty: 90 0RF
Continued
loratadine 10 MG tablet
10 mg PO DAILY
quetiapine 25 mg tablet
25 mg PO HS
gabapentin 100 mg capsule
100 mg PO BID
rosuvastatin 20 mg tablet
20 mg PO DAILY
aspirin 81 mg Tablet,Delayed Release (Dr/Ec)
81 mg PO DAILY
docusate sodium [Colace] 100 mg Capsule
100 mg PO QPM
meclizine 25 mg tablet
25 mg PO BID
melatonin 10 mg Tablet
10 mg PO HS
Dulcolax (magnesium hydroxide) 1,200 mg Tablet,Chewable
1 mg PO QPM
Discontinued
mirabegron [Myrbetriq] 50 mg Tablet Extended Release 24 Hr
50 mg PO DAILY
Patient Comments:
gets from [facility]
solifenacin 10 mg tablet
10 mg PO QPM
sertraline [Zoloft] 25 mg Tablet
25 mg PO QPM
amitriptyline 10 mg Tablet
10 mg PO QPM
Discharge Orders:
Discharge Patient (As Directed); Ordered 04/05/25
Ordered By: Reese Hernandez
Discharge Date and Time
Discharge Date/Time: 04/05/25 20:04
Print Language: MALAYSIAN
== END 2025-04-05 20:04 | DRG 57 ==
LOC: 3 WEST ACU 19:50
PROVIDERS: Emergency Medicine; Psychiatry & Neurology Psychiatry; ADMITTING PHYSICIAN Internal Medicine; ATTENDING PHYSICIAN Hospitalist; CONSULT PHYSICIAN Psychiatry & Neurology Psychiatry; CONSULT PHYSICIAN Urology; EMERGENCY PHYSICIAN Student in an Organized Health Care Education/Training Program; FAMILY PHYSICIAN Family Medicine
DX: G20.A1 Parkinson's disease without dyskinesia, without mention of fluctuations (principal); F02.82 Dementia in other diseases classified elsewhere, unspecified severity, with psychotic disturbance; F02.83 Dementia in other diseases classified elsewhere, unspecified severity, with mood disturbance; F02.84 Dementia in other diseases classified elsewhere, unspecified severity, with anxiety; N39.0 Urinary tract infection, site not specified; G31.83 Neurocognitive disorder with Lewy bodies; F32.A Depression, unspecified; N32.81 Overactive bladder; I25.10 Atherosclerotic heart disease of native coronary artery without angina pectoris; G43.909 Migraine, unspecified, not intractable, without status migrainosus; Z79.899 Other long term (current) drug therapy; E78.00 Pure hypercholesterolemia, unspecified; G47.33 Obstructive sleep apnea (adult) (pediatric); I10 Essential (primary) hypertension; N31.9 Neuromuscular dysfunction of bladder, unspecified; N40.0 Benign prostatic hyperplasia without lower urinary tract symptoms; Z79.82 Long term (current) use of aspirin; Z87.440 Personal history of urinary (tract) infections; Z87.891 Personal history of nicotine dependence; Z90.79 Acquired absence of other genital organ(s)
CPT/HCPCS: 80048; 80053; 80076; 81003; 81015; 84132; 84443; 85025; 87086; 93005; 94660; 97530; 99285